=== PATIENT | female | born 1965 | race Caucasian/White ===

== ENCOUNTER → 2018-02-17 14:45 | Outpatient (CLI) | payer OTHER, SELFPAY ==
--- NOTE | 2018-02-17 14:50 | RAD_ITS ---
STUDY: X-RAY - LUMBAR SPINE REASON FOR EXAM: Female, 52 years old. Lumbago with left side sciatica. TECHNIQUE: 5 view(s) of the lumbar spine were obtained. COMPARISON: None FINDINGS: Normal lumbar lordosis. There is no substantial scoliosis. There is a normal alignment of the vertebrae. There is multilevel endplate spondylosis of the lumbar vertebrae. Normal disc space heights. There is no evidence of acute fracture or loss of vertebral axial height. There is no demonstrated spondylolysis of the pars interarticulares. The soft tissue structures are unremarkable. RAD/L/S Spine Min 4 Views IMPRESSION: Degenerative changes of the spine, as detailed above. Electronically Signed: Aba Padron DO at 11:59 EDT Tel [phone], Service support ,
== END ==
PROVIDERS: Family Provider Family Medicine; PCP Family Medicine; Visit Provider Family Medicine
DX: M54.42 Lumbago with sciatica, left side (principal)
CPT/HCPCS: 72110

== ENCOUNTER → 2018-03-16 16:07 | Outpatient (CLI) | payer OTHER, SELFPAY ==
[2018-03-22 12:53] LABS: HPV Reflexed? NOT INDICATED
== END ==
PROVIDERS: Visit Provider Obstetrics & Gynecology
DX: Z12.4 Encounter for screening for malignant neoplasm of cervix (principal)
CPT/HCPCS: 88175; G0145

== ENCOUNTER → 2018-04-18 08:30 | Outpatient (CLI) | payer OTHER, SELFPAY ==
--- NOTE | 2018-04-18 08:32 | BI_ITS ---
MAMMOGRAPHY - BILATERAL SCREENING REASON FOR EXAM: Female, 52 years old. Routine annual screening examination. PERTINENT HISTORY: Aunt with breast cancer. TECHNIQUE: Digital bilateral breast carole (3D mammographic acquisition) in the CC and MLO projections. 2-D mediolateral oblique (MLO) and craniocaudad (CC) views of both breasts were obtained. CAD: Full Field Digital Mammography with Computer Added Detection was performed. COMPARISON: Comparison is made with prior study dated February 25, 2017 and January 23, 2016. FINDINGS: Breast Composition: There are scattered areas of fibroglandular density. There are no dominant masses or suspicious calcifications. No other significant abnormalities are identified. There has been no significant change since the prior study. BI/SCREENING MAMM (CAD), BILAT IMPRESSION: Stable bilateral screening mammogram. Yearly follow-up mammogram recommended. (A) ASSESSMENT CATEGORY: BIRADS Category 1: Negative. A letter regarding these results will be sent to the patient by the facility within 30 days. Approximately 10% of breast cancers are not detected by mammography. A normal mammogram should not delay biopsy of a clinically suspicious abnormality. [id number] Electronically Signed: Rafat James MD at 11:14 EDT Tel [phone], Service support ,
== END ==
PROVIDERS: Family Provider Family Medicine; PCP Family Medicine; Visit Provider Obstetrics & Gynecology
DX: Z12.31 Encounter for screening mammogram for malignant neoplasm of breast (principal)
CPT/HCPCS: 77063; 77067

== ENCOUNTER 2018-04-28 16:00 | Outpatient (RCR) | payer OTHER, SELFPAY ==
--- NOTE | 2018-04-01 15:25 | HP.PTEVAL_ITS ---
Patient's Visit Information DOROTHY DIETRICH is a 52 year old F referred to Physical Therapy by Emanuel Gregory with a diagnosis of Lumbar DDD. Date of Evaluation: 04/01/18 Physical Therapist: CARMELO McginnisT, OC - Visit Plan Frequency: 2x /Week Duration: 4-6 Weeks Plan: 2x/week for 4-6 weeks for. Izaiah type progression of ext forces. ext mobs if needed. DLS and hip strength progress to I. ES and MH if needed. - Subjective Subjective: Back and hip pain. This is going on for a long while> one year. Pain is in LB and into both posterior hips. Sitting too long is worse and makes it hard to get up. Leg crossing sitting makes hips worse. Not sure why this started. Gets massages which feel good. Working at [employer] at one time and on feet alot was very hard. 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 One month ago she got worse for no apparent reason taking 2 ibuprofen every 4 hours. Lying down hurt and walking hurt. Still hurts but not to that extent. Sleep on side and wakes up early because of pain. Up in the morning adn sitting too long is worse. 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 Work is normal but has to muddle through it. Does basics at home but hurts. Enjoys reading in recliner. Walks 5-7 miles per day at work. - Pain LBP/post hips Pain Intensity (Out of 10): 5 Pain Intensity Range: 0, 7 - Objective Walks and transfers I, low tone trunk. Posture is forward head and flat lordosis. L/S AROM ext mod limited and painful central, SB hurts ipsilaterally , flexion is tight. Tenderness in low back paraspinals is minimal. reflexes 2/ 3 in patella and achilles. Sensation In LE WNL to gross light touch. Strength 3+ in hips and 4 in knees and 4+ in ankles, no myotomal abnormalities. Core is 3/5 and loses core postioning often with sidelying leg testing. Repeated PPU increases LB ext ROM. - Goals Goal 1:: Full L/S AROM without pain and out of chair easily without pain. Goal Time Frame: 4-6 Weeks Goal 2:: Pain down to 1/10 at worst in LB and 90% improved. Goal Time Frame: 4-6 Weeks Goal 3:: I approp HEP for DLS to minimize future problems. Goal Time Frame: 4-6 Weeks - Rehabilitation Potential Physical Therapy Diagnosis: Lumbar DDD likely discal derangement. Rehabilitation Potential: Fair - Anticipated Interventions Patient/Client Instruction: Educate patient on: Condition, Plan of Care For the Purpose of:: To decrease pain, To increase ROM, To improve performance and independence with ADL's Therapeutic Exercise to Include: Strength training, Active ROM, Dynamic Lumbar Stabilization, Izaiah Exercises For the Purpose of:: To decrease pain, To increase ROM, To improve ability of physical actions for home/community/work/leisure Manual Therapy Techniques to Include: Mobilization Comment: ext. For the Purpose of:: To improve ability of physical actions for home/community/ work/leisure TENS: Yes Thermo therapy (hot pack): Yes For the Purpose of:: To decrease pain Thank you for the opportunity to evaluate your patient. For Medicare and Medicare HMO plans, please review the plan of care and approve it. It will need to be FAXED BACK to us at [phone] for Medicare purposes. Please let me know if there are questions or concerns regarding this plan of care. Physician Signature: Date:
--- NOTE | 2018-04-28 16:46 | HP.PTDCSUM ---
HP - PT D/C Summary It has been my pleasure to treat DOROTHY DIETRICH under orders from Emanuel Gregory, for the diagnosis of Lumbar DDD for a total of 7 visit(s). Discharge Date: 04/28/18 Please see the following information for a summary of their discharge status. - Subjective Subjective: Was doing great until fell off ladder 10 days ago. 2/10 pain now intermittently. Some days no pain. Doing HEP and thinks they will help. Wants to continue with HEP at home. NO f/u scheduled with doctor. - Pain LBP/post hips Pain Intensity (Out of 10): 2 - Overall Improvement % Improvement: 85 - Objective Objective/Function: Good L/S AROM with just some central pressure. Steps reciprocal without rail. OVERALL DOING VERY WELL AND READY TO BE ON HER OWN. - Goals Goal 1:: Full L/S AROM without pain and out of chair easily without pain. Goal Progress: Progressing Goal 2:: Pain down to 1/10 at worst in LB and 90% improved. Goal Progress: Progressing Goal 3:: I approp HEP for DLS to minimize future problems. Goal Progress: Goal Met - Plan Plan: D/C to HEP - D/C Information Discharge Comments: Doing well and ready to be on own. Will continue via HEP adn contact doctor if pain returns. If there are questions or concerns regarding this patient's physical therapy, please feel free to call me at [phone]. Thank you for the referral of this patient. Sincerely, Jose Krishnamurthy, DPT, OC
== END 2018-04-28 19:00 | disposition home or self-care (01) ==
LOC: PT 16:00
PROVIDERS: Family Provider Family Medicine; PCP Family Medicine; Visit Provider Family Medicine
DX: M51.36 Other intervertebral disc degeneration, lumbar region (principal)
CPT/HCPCS: 97014; 97110; 97162; 97530; G0283

== ENCOUNTER 2019-04-27 04:33 | Emergency (ER) | payer OTHER, SELFPAY ==
[2019-04-27 04:33] VITALS: BP 180/121; PULSE 84; TEMP 36.7; O2SAT 99; BMI 25.3
--- NOTE | 2019-04-27 04:54 | US_ITS ---
STUDY: ULTRASOUND GALLBLADDER REASON FOR VISIT: Female, 53 years old. . Airspace pneumonia right congestion follow-upas(0). (The TECHNIQUE: Ultrasound evaluation of the gallbladder was performed with real-time and static maynard-scale imaging. TECHNICAL QUALITY: Adequate. COMPARISON: None. FINDINGS: Gallbladder: Normal distended gallbladder. The gallbladder wall measures 1.9 mm. There is a negative sonographic Chopra's sign. There is no pericholecystic fluid. There are multiple filling defects attached to the l wall of the gallbladder wall consistent with polyps one of them could represent stone without acoustic shadowing. All of them are less than half centimeters in diameter. . The liver is normal in size, shape and echogenicity it measures 15.4 cm. The CBD measures 2.7 mm. The portal vein is unremarkable. No dilatation of the intrahepatic biliary system The right kidney measures 11.2 x 3.1 x 4.2 cm old. The renal cortex measures 0.9 cm. No hydronephrosis or stone. US/Gallbladder IMPRESSION: Small multiple filling defects attached to the wall of the gallbladder consistent with polyps one of them could represent a stone without acoustic shadowing. Electronically Signed: Shayy White, at 9:26 EDT Tel , Service support ,
[2019-04-27] MEDS: Ondansetron 4 MG/2 ML Vial IV (05:13)
[2019-04-27] MEDS: Ketorolac 30 MG/ML Syringe IV (05:13)
[2019-04-27] MEDS: 0.9% Normal Saline 1,000 ML 1000 ML IV (05:13)
[2019-04-27 05:19] LABS: ALB/GLOB Ratio 1.2 RATIO (0.9-2.4); AST(SGOT) 22 U/L (15-37); Alanine Aminotransfer ALT/SGPT 37 U/L (13-56); Albumin, Serum 4.2 g/dL (3.2-5.0); Alkaline Phosphatase 68 U/L (45-117); Anion Gap 9 (5-15); BUN 17 mg/dL (7-18); BUN/Creat Ratio 16.8 RATIO (10-20); Chloride 107 mmol/L (98-107); Creatinine, Serum 1.01 mg/dL (0.55-1.02); EST Glomerular Filtration Rate 61 mL/min (>60); Est Glom Filt Rate - Afr Amer 73 mL/min (>60); Estimated Creatinine Clearance 50.36 ml/min; Globulin 3.5 g/dL (2.2-4.2); Glucose 105 mg/dL (74-106); Lipase 287 U/L (73-393); Potassium 3.7 mmol/L (3.5-5.1); Protein, Total 7.7 g/dL (6.4-8.2); Sodium Level 144 mmol/L (136-145)
[2019-04-27 05:27] LABS: Absolute Lymphocyte Count 2.88 X10^3/ul (0.83-4.51); Absolute Neutrophil Count 4.2 X10^3/uL (2.0-7.7); Basophil# 0.05 X10^3/uL; Basophil% 0.6 % (0-1); Eosinophil# 0.32 X10^3/uL; Lymphocyte # 2.88 X10^3/ul (4.0); Lymphocyte % 36.1 % (19-41); Mean Corpuscular Volume 84.2 fL (81-99); Mean Platelet Vol. 9.9 fl (6.2-12.0); Monocyte# 0.56 X10^3/uL; Neutrophil # 4.15 X10^3/uL (2.7-7.7); Platelet Count 344 K/mm3 (150-450); RBC Distribution Width CV 11.8 % (11.6-14.6); RBC Distribution Width SD 35.4 fl (35.1-43.9); Red Blood Count 4.75 M/mm3 (4.2-5.4)
[2019-04-27 05:28] LABS: Mean Corpuscular Hgb 29.5 pg (27.0-32.0); POSITIVE COUNT NO; POSITIVE DIFFERENTIAL NO; POSITIVE MORPHOLOGY NO
--- NOTE | 2019-04-27 05:41 | ED.DCSUM_ITS ---
- ER Visit Summary Date of Service: 04/27/19 Chief Complaint: Abdominal pain History of Present Illness: The patient is a 53 F who presents with abdominal pain. This been going on for about 24 hours. It waxes and wanes. It stabbing at times with a constant background dull aching pain. It is in the upper abdomen and right upper abdomen radiates through to the back. She currently rates it as 3 out of 10 however it was 10 out of 10 at home. She also reports mild nausea without vomiting. No fevers. No chest pain shortness of breath diarrhea. No history of prior similar symptoms. No history of abdominal surgeries. Physical Examination: Afebrile hypertensive with a blood pressure of 180/121 vitals otherwise normal Moist mucous membranes Heart regular rate and rhythm Lungs clear Abdomen soft nondistended she does have epigastric and right upper quadrant tenderness without guarding without rebound no Chopra sign Alert Test Results: CBC CMP and lipase normal. Right upper quadrant ultrasound pending at the time of this dictation. Emergency Department Course and Treatment: Patient was treated with IV fluids, Toradol, Zofran. She is still complains of mild discomfort on reevaluation. Repeat abdominal exam remains soft. Ultrasound pending and will not be obtained until after signout this morning. Plan at the time of this dictation is for the morning physician to follow-up on ultrasound however given normal laboratory studies and lack of peritoneal signs on exam I anticipate discharge with outpatient follow-up. Treatment Plan: [] Disposition: Pending right upper quadrant ultrasound Impression: Epigastric and right upper quadrant abdominal pain This note was generated with [employer] dictation software. It may contain incorrect words, spelling, and punctuation that were not noted in review of the chart prior to signing ED Disposition - Plan for ED Patient: Referrals: Maurisio Gregory MD [Primary Care Provider] -
[2019-04-27 06:30] VITALS: BP 162/89; PULSE 71; RESP 17; O2SAT 96
--- NOTE | 2019-04-27 08:15 | ED.VISSUMM ---
- ER Visit Summary Date of Service: 04/27/19 Chief Complaint: Right upper quadrant abdominal pain History of Present Illness: The patient is a 53 F who was seen by Dr. Huston initially today with right upper quadrant and epigastric abdominal pain. He ordered a ultrasound of the right upper quadrant and this is pending. Patient is feeling better on reevaluation. Physical Examination: Patient is resting comfortably on reevaluation. Test Results: Right upper quadrant ultrasound was obtained. There is no gallbladder wall thickening. There is no ductal dilatation. There are multiple small polyps versus gallstones noted. This was interpreted by the radiologist and reviewed by myself. Emergency Department Course and Treatment: Patient is feeling better and resting comfortably on reevaluation. Patient was advised of her ultrasound results. Patient was given a prescription for a short course of [place]. Patient was instructed to eat a bland diet. Patient was instructed to avoid fried foods, fatty foods, and greasy foods. Patient was instructed to follow-up with her primary care physician in 5 to 7 days. Patient understood and was agreeable with the plan. All questions were answered. Disposition: Discharge home Impression: Right upper quadrant abdominal pain This note was generated with [employer] dictation software. It may contain incorrect words, spelling, and punctuation that were not noted in review of the chart prior to signing ED Disposition - Plan for ED Patient: Disposition: Home or Assisted Living Diagnosis: Right upper quadrant abdominal pain Instructions: ABDOMINAL PAIN, Unknown Cause, (Female) Prescriptions: Hydrocodone Bitart/Apap 5-325 [[place] 5MG-325MG] 1 tab PO Q6H PRN PRN 3 Days #10 tab PRN Reason: Pain Prescription Printed Referrals: Maurisio Gregory MD [Primary Care Provider] - 5-7 Days
[2019-04-27] MEDS: Morphine 4 MG/ML Syringe IV (10:32)
[2019-04-27 10:39] VITALS: BP 153/92; PULSE 86; RESP 18; O2SAT 98
[2019-04-27 11:46] VITALS: BP 167/87; PULSE 71; RESP 18; O2SAT 98
== END 2019-04-27 11:48 | disposition home or self-care (01) ==
PROVIDERS: Emergency Provider Emergency Medicine; Family Provider Family Medicine; PCP Family Medicine
DX: R10.13 Epigastric pain (principal); R10.11 Right upper quadrant pain; J45.909 Unspecified asthma, uncomplicated
CPT/HCPCS: 76705; 80053; 83690; 85025; 96361; 96374; 96375; 99284; J7030; A4216; J2405

== ENCOUNTER 2019-05-26 11:03 | Day surgery (SDC) | payer OTHER, SELFPAY ==
[2019-05-03 08:56] VITALS: BMI 25.3
--- NOTE | 2019-05-03 09:25 | HP_ITS ---
Intake Vital Signs 05/03/19 Body Mass Index (BMI) 25.3 05/03/19 Height 5 ft 2 in 05/03/19 Weight: 129 lb 05/03/19 Body Mass Index (BMI) 23.6 05/03/19 Blood Pressure 171/93 H 05/03/19 Blood Pressure Location Rt brachial 05/03/19 Respiratory Rate 18 05/03/19 Pulse Rate 93 05/03/19 Pulse Source Monitor 05/03/19 Temperature 98.2 F 05/03/19 Temperature Source Oral 05/03/19 Pulse Ox 98 05/03/19 Oxygen Delivery Method room air Intake Visit Reasons: Gall Stones [facility] 04/27 Mechanic Recovery Required: No Is patient in pain?: No Allergies dog dander Allergy (Verified 05/03/19 08:55) Other minerals [From Enviro Stress] Allergy (Verified 05/03/19 08:55) Other perfume Allergy (Verified 05/03/19 08:55) Angioedema envirvoment Allergy (Uncoded 04/27/19 05:19) Other SMOKE Allergy (Uncoded 04/27/19 04:48) Angioedema Medications Cetirizine HCl [Zyrtec] 10 mg PO DAILY 04/27/19 [History Confirmed 05/03/19] Fluticasone 0.05% [Flonase Nasal [place]] 1 spray NASAL DAILY 04/27/19 [History Confirmed 05/03/19] Mometasone Furoate [Asmanex 220 mcg Twisthaler] 1 puff INHALATION DAILY 04/27/19 [History Confirmed 05/03/19] Multivit-Min/Folic Acid/Vit K1 [Multi For Her 50 Plus Softgel] 1 ea PO DAILY 04/27/19 [History Confirmed 05/03/19] [place]-3 Fatty Acids [Fish Oil] 1,200 mg PO BID 04/27/19 [History Confirmed 05/03/19] B-complex with vitamin C capsule 1 cap PO DAILY 05/03/19 [History Confirmed 05/03/19] vitamin E (dl, acetate) 400 unit capsule 400 unit PO DAILY 05/03/19 [History Confirmed 05/03/19] [facility] Medical History Abdominal pain (Acute) Asthma (Acute) GERD (gastroesophageal reflux disease) (Acute) Nausea (Acute) Hypertension (Chronic) Surgical History (Updated 05/03/19 @ 08:52 by Emily Isabel) History of dilation and curettage (Acute) History removal of wisdom teeth (Acute) Family History (Updated 05/03/19 @ 08:53 by Emily Isabel) Mother Thyroid disorder Hypertension Father Cancer Lung cancer CVA (cerebral vascular accident) Sister Diabetes Social History (Updated 05/03/19 @ 09:25 by Miguel A Bradshaw MD) Smoking Status: Never smoker substance use type: does not use HPI HPI HPI: DOROTHY DIETRICH, is a 53 F who presents to the office today for HPI HPI Surgical H&P: Yes HPI: DOROTHY DIETRICH, is a 53 F who presents to the office today for right upper quadrant pain. Patient was recently in the emergency room after an episode of right upper quadrant pain. She described this is 24 hours of waxing and waning pain which was sharp and radiating to the back. There is no nausea or vomiting associated. She has never had attacks like this in the past and has not had any since last week. ROS General General: No weight change, appetite, fatigue, colon cancer, breast cancer or weakness HEENT HEENT: No difficulty swallowing, eye injury, eye surgery, swollen glands or hoarseness Endo Endocrine: No thyroid disease, diabetes mellitus, thyroid cancer, Hair loss, heat intolerance or cold intolerance Skin Skin: No rash or changing moles Breast Breast: No left breast lump, right breast lump, nipple discharge, breast pain, abnormal mammogram, abnormal US or breast enlargement Musc Musculoskeletal: No back problems, arthritis, rheumatoid arthritis, gout or joint pain Cardio Cardiovascular: Yes high blood pressure; no murmur, pacemaker, heart disease, atrial fibrillation, heart attack, heart stent, palpitations, shortness of breat with exertion or chest pain Psych Psychiatric: No depression, anxiety or hearing voices Resp Respiratory: No shortness of breath, No sleep apnea, No cough, No COPD, Yes asthma, No emphysema, No wheezing Gastro Gastrointestinal: Yes abdominal pain, Yes nausea or vomiting, No diarrhea, No constipation, No blood in stool, Yes acid reflux, No hemorrhoids, No ulcers, Yes gallbladder problem, No black,tarry stools Monty Hematologic: No blood thinners, No blood disorders, No bleeding, No anemia, No blood clots Neuro Neurologic: No system reviewed and no additional complaints, except as docu, No as per HPI, No abnormal walking, No abnormal hearing, No abnormal movements, No abnormal speech, No behavioral changes, No burning sensations, No confusion, No seizure-like activity, No unsteadiness, No dizziness, No localized weakness, No frequent falls, No headache(s), No lack of coordination, No loss of vision, No memory loss, No numbness, No other visual disturbances, No radiating pain, No restless legs, No sensory deficit, No fainting, No tingling, No tremor(s), No weakness, No other Exam Const General: cooperative Orientation: alert, oriented x3 HENMT Head: normal to inspection Ears: hearing grossly normal bilaterally Eyes General: appearance normal, both eyes and all related structures Visual Wooten: normal visual wooten by confrontation Neck Neck: normal visual inspection Chest Chest palpation & inspection: normal inspection of the chest Breast Palpation: No nipple discharge Resp Effort & Inspection: normal respiratory effort Auscultation: clear to auscultation bilaterally Cardio Rate: regular rate Rhythm: regular rhythm Heart Sounds: no murmurs GI Inspection: non-distended Palpation: soft, nontender Musc Cervical Spine: normal cervical lordosis, cervical ROM normal Skin General: no rashes or lesions noted Neuro General: alert, oriented x3 Cranial Nerves: CN's II-XI intact bilaterally Cognition: normal cognition Extrem General: normal to inspection, full ROM Psych Appearance: grossly normal Affect: normal affect Assessment & Plan Problems 1. Calculus of gallbladder without cholecystitis without obstruction K80.20 Plan Patient had an episode of right upper quadrant pain which is very suggestive of biliary colic. She had an ultrasound which showed no signs of acute cholecystitis but she did have several small polyps as well as a possible gallstone. I did recommend laparoscopic cholecystectomy to the patient. I discussed the procedure in detail with the patient. I discussed the risks, benefits, and alternatives of the procedure. I discussed the risks including but not limited to bleeding, infection, injury to surrounding organs such as the liver, bile duct, bowels. I did discuss the possibility of having to convert to an open procedure as well as the possibility that if any injuries occurred this may necessitate further surgery at a tertiary care center. Miguel A Bradshaw MD Pager: [facility] [address] [place] [address], [address] [place] [id number] Office: Coding Level of Care Code Off vis,new,level 4 Diagnoses Calculus of gallbladder without cholecystitis without obstruction K80.20 ??Cholelithiasis location: gallbladder ??Cholecystitis presence: without cholecystitis ??Biliary obstruction: without biliary obstruction 05/03/19 0926 <Electronically signed by Miguel A garsia MD> Date _ Miguel A Bradshaw MD I have re-examined the patient. There are no clinical changes since date of exam.
--- NOTE | 2019-05-19 15:09 | EKG12_ITS ---
Test Reason : PRE OP Blood Pressure : / mmHG Vent. Rate : 076 BPM Atrial Rate : 076 BPM P-R Int : 146 ms QRS Dur : 076 ms QT Int : 404 ms P-R-T Axes : 048 006 040 degrees QTc Int : 454 ms Normal sinus rhythm with sinus arrhythmia Normal ECG Confirmed by ALDAIR SANTOS, MEGHA ([id number]), video news editor EDMUND PABLO ([id number]) on 05/22/2019 1:20:58 PM Referred By: Miguel A Bradshaw Confirmed By:CARLEE QUINTEROS MD
[2019-05-26] VITALS (8 sets, daily range): BP systolic 151–177; BP diastolic 82–92; PULSE 51–87; RESP 16–18; TEMP 36.6–37.3; O2SAT 99–100; BMI 22.8
--- NOTE | 2019-05-26 13:20 | GALL_PTH ---
PATIENT: DOROTHY DIETRICH LOC: [facility] U#:[id number] AGE/SX: 53/F ROOM: RE05/26/[address]: Dr. Miguel A Bradshaw MD : 1965 BED: DIS: 05/26/2019 SPEC #: [id number] RECD: 05/26/19 16:49 STATUS: [place] #: [id number] CHRISTINA: 05/26/19 13:[address]: Miguel A Bradshaw DEPT: SURGICAL PATHOLOGY RECD BY: Jono Rogers ENTERED: 05/29/19 09:41 SP TYPE: MYESHA CARMICHAEL DR: Dr. Emanuel Gregory MD Tissues: Gallbladder, NOS Procedures: Surgery Specimen Level III HEADER OPERATION: Laparoscopic cholecystectomy with IOC PRE-OP DIAGNOSIS: Calculus of gallbladder without cholecystitis or obstruction K80.20 TISSUE SUBMITTED: Gallbladder MICROSCOPIC DIAGNOSIS Gallbladder, cholecystectomy: Cholesterolosis and chronic cholecystitis AM:dinesh 05/30/19 MICROSCOPIC DESCRIPTION Slides are reviewed. GROSS DESCRIPTION Received is one container labeled with the patient's name and designated gallbladder. The specimen consists of a gallbladder measuring 6.5 cm in length and up to 3 cm in diameter. The external surface is pink-guaman, smooth and glistening for the most part. Focally it is granular, hemorrhagic and contains cautery artifact. The gallbladder contains green-yellow mucoid bile. No stones are identified in the container or in the gallbladder. The mucosa shows small polypoid lesions measuring 0.1 to 0.3 cm in greatest dimension. The gallbladder wall measures up to 0.1 cm in thickness. Apparatus Engineering Technologist sections from the gallbladder and the cystic duct are submitted in one cassette. The polypoid lesions are submitted in entirety. / SJ:sarah 05/29/19 TC: 3 [facility]: [id number]
[2019-05-26] MEDS: Bupiv/Epi 0.25% 30 ML Vial (13:55)
--- NOTE | 2019-05-26 14:08 | PCM.OPRPT ---
Problem List (1) Cholelithiasis Status: Acute Qualifiers: Cholelithiasis location: gallbladder Cholecystitis presence: without cholecystitis Biliary obstruction: without biliary obstruction Qualified Code(s): K80.20 - Calculus of gallbladder without cholecystitis without obstruction Report of Operation Date of Procedure: 05/26/19 Pre-Operative Diagnosis: Cholelithiasis and biliary colic Post-Operative Diagnosis: Same Surgery/Procedure Performed:: Laparoscopic cholecystectomy with cholangiogram Specimen's removed: Gallbladder and contents Description of Procedure: After obtaining informed consent patient was brought back to the operating room. General anesthesia was induced. The abdomen was prepped and draped in usual sterile fashion. A small midline incision was made superior to the umbilicus and deepened to the level of fascia. The fascia was elevated and incised. Next the peritoneum was elevated and incised in the same fashion. Finger sweep was performed and the Quiñonez trocar was placed into the abdomen. The balloon was inflated. The abdomen was inflated to 15 mmHg. Next a camera was introduced into the abdomen and the abdomen was inspected. Next under direct visualization three 5-mm ports were placed one subxiphoid and 2 subcostal. Next the gallbladder was elevated and retracted toward the right shoulder. The peritoneum was stripped from the gallbladder. The infundibulum was located and retracted laterally. Next the triangle of Calot was dissected and the cystic duct and cystic artery were identified. Cholangiograms were performed. The Caro clamp was used to clamp across the infundibulum and the catheter needle was inserted into the gallbladder. Under fluoroscopy contrast was instilled into the gallbladder and the common duct, cystic duct as well as proximal hepatic ducts were identified. There was good filling of the duodenum. There were no filling defects noted in the common bile duct. The clamp was removed as well as the needle and the infundibulum was grasped once more. Three hemolock clips were placed across the cystic duct. The cystic duct was then divided leaving 2 clips on the stump. The cystic artery was clipped and divided in the same fashion. The hook cautery was then used to take the gallbladder off of the gallbladder bed. Hemostasis was obtained. Gallbladder fossa was irrigated and no active bleeding or bile leakage was noted. Next the camera switched to a 5 mm camera and introduced in the subxiphoid port. An Endopouch bag was placed through the umbilical port and the gallbladder was placed into it. The gallbladder was then removed through the umbilical incision. The camera was then reinserted through the umbilical port. The gallbladder fossa was inspected once more and noted to be hemostatic with no leaking bile. The abdomen was suctioned dry. The 5 mm ports were removed under direct visualization. The umbilical port was then removed and the air was removed from the abdomen. Next using an 0 Vicryl suture the umbilical fascia was closed in a [id number]-el-bgeih fashion. The umbilical port site was irrigated local anesthetic was administered to all the incisions. All the incisions were closed with interrupted subcuticular 4-0 Monocryl sutures followed by Steri-Strips and dressings. The patient was awoken and taken to PACU in stable condition. - Admit VTE Documentation VTE Mechan Device Prophylaxis: SCD's
--- NOTE | 2019-05-26 14:10 | PCM.DC.GB ---
Discharge Diet: Light diet - advance as tolerated Discharge Activity: Return to Normal Activity, May Not Drive - for 2-3 days or while taking narcotic pain medicataions., - - Do not drive, work heavy equipment or sign legal documents for 24 hours. May shower in (days): 1 - with the bandage in place. Lifting Restrictions: 20 lbs for 2 weeks Additional Activity Instructions:: Pain medication may cause nausea. You should typically eat light foods as you take your pain medications. Pain medication may also cause constipation. If this is a problem for you, please discuss with your doctor. Call your doctor if your incision/area has: Continuous Slow Oozing, Sudden Increased Bleeding, Increased Pain/ Swelling, Increased Redness, Foul Smelling Discharge, Fever of 101 or Higher Call your doctor if you observe: Fever of 101 or Higher Suture Line Care: Avoid Pulling/Pushing, Avoid Pinching/Bending Additional Dressing/Incision Instructions:: Leave operative bandaids on for 2 days. When you remove dressing, leave Steri-Strips on until your follow-up appointment, or until the Steri-Strips fall off on their own. Allergies/Adverse Reactions: Allergies dog dander Allergy (Verified 05/03/19 08:55) Other SINUS DRAINAGE minerals [From Enviro Stress] Allergy (Verified 05/03/19 08:55) Other SINUS DRAINAGE mold Allergy (Verified 05/26/19 12:12) Swelling perfume Allergy (Verified 05/03/19 08:55) Angioedema envirvoment Allergy (Uncoded 04/27/19 05:19) Other sinus drainage SMOKE Allergy (Uncoded 04/27/19 04:48) Angioedema sulfites Allergy (Uncoded 05/19/19 14:12) Swelling Medications to take at Discharge Cetirizine HCl [Zyrtec] 10 mg PO DAILY 04/27/19 Fluticasone 0.05% [Flonase Nasal [place]] 1 spray NASAL DAILY 04/27/19 Mometasone Furoate [Asmanex 220 mcg [place]] 1 puff INHALATION DAILY 04/27/19 Multivit-Min/Folic Acid/Vit K1 [Multi For Her 50 Plus Softgel] 1 ea PO DAILY 04/27/19 [place]-3 Fatty Acids [Fish Oil] 1,200 mg PO BID 04/27/19 B-complex with vitamin C capsule 1 cap PO DAILY 05/03/19 vitamin E (dl, acetate) 400 unit capsule 400 unit PO DAILY 05/03/19 Albuterol IH (ProAir) [Proair Hfa (SP)Vent Pts] 1 - 2 puff INHALATION Q6H PRN PRN 05/19/19 Oxycodone HCl/Acetaminophen [Percocet 5/325] 1 - 2 tablet PO Q4H PRN PRN 7 Days #20 tablet 05/26/19 The following prescriptions were given: Oxycodone HCl/Acetaminophen [Percocet 5/325] 1 - 2 tablet PO Q4H PRN PRN 7 Days #20 tablet PRN Reason: Pain Transmission Status: Sent to [facility] Orders to be completed after discharge: 12 Lead EKG [[facility]] Time Frame: 05/19/19, Facility: [facility], Location: Cardiovascular Services Primary Care Physician: Maurisio Gregory MD [Primary Care Provider] - Test Results: Test results from this visit will be discussed in further detail at your follow-up appointment, if applicable. Please Follow Up With: Miguel A Bradshaw MD When: Please call to schedule 2 week follow up appointment. [phone]
--- NOTE | 2019-05-26 14:35 | RAD_ITS ---
CLINICAL HISTORY: Female, 53 years old. Cholecystectomy PROCEDURE: CHOLANGIOGRAM - intraoperative CONSENT: Informed consent obtained SEDATION: General anesthesia FLUOROSCOPY TIME (if supplied): (0:08) minutes/seconds Placement of the catheter and the procedure were performed by: Dr. Bradshaw Fluoroscopy was provided by [place] Ralph, , who was present in the room time of the procedure. TECHNIQUE: (All elements of maximal sterile barrier technique followed, including US elements as applicable) After cholecystectomy, the cystic duct was cannulized and contrast injected into the biliary tree in a retrograde manner. There is normal filling of the biliary tree. No retained stone noted. There is free flow of contrast into the duodenum and no extravasation of contrast outside the lumen of the biliary tree noted. RAD/Cholangiogram/ O R,Initial IMPRESSION: Normal intraoperative cholangiogram Electronically Signed: Anand Paulino MD at 14:01 EDT , Service support ,
== END 2019-05-26 17:07 | disposition home or self-care (01) ==
LOC: SDC 11:03 → AC 11:09
PROVIDERS: Family Provider Family Medicine; PCP Family Medicine; Referring Provider Surgery; Visit Provider Surgery
PROC: (CPT 47610; principal; 2019-05-26 13:00)
DX: K81.1 Chronic cholecystitis (principal); J45.909 Unspecified asthma, uncomplicated; K21.9 Gastro-esophageal reflux disease without esophagitis; I10 Essential (primary) hypertension; Z79.51 Long term (current) use of inhaled steroids; Z79.899 Other long term (current) drug therapy
CPT/HCPCS: 47563; 74300; 76000; 88304; 93005; J7120; J2405

== ENCOUNTER → 2019-07-08 | Outpatient (CLI) | payer OTHER, SELFPAY ==
[2019-05-26 12:15] VITALS: BMI 22.8
[2019-07-08 08:22] LABS: AST(SGOT) 24 U/L (15-37); Alanine Aminotransfer ALT/SGPT 48 U/L (13-56); Albumin, Serum 3.8 g/dL (3.2-5.0); Alkaline Phosphatase 94 U/L (45-117); Anion Gap 8 (5-15); BUN 15 mg/dL (7-18); BUN/Creat Ratio 18.2 RATIO (10-20); Calcium,Total 8.8 mg/dL (8.5-10.1); Chloride 112 mmol/L (98-107); Cholesterol 255 mg/dL (200); Creatinine, Serum 0.82 mg/dL (0.55-1.02); EST Glomerular Filtration Rate 77 mL/min (>60); Est Glom Filt Rate - Afr Amer 93 mL/min (>60); Globulin 3.8 g/dL (2.2-4.2); Glucose 88 mg/dL (74-106); High Density Lipoprotein 57 mg/dL; Potassium 3.9 mmol/L (3.5-5.1); Protein, Total 7.6 g/dL (6.4-8.2); Sodium Level 143 mmol/L (136-145); Thyroid Stim Hormone (TSH) 1.05 uIU/mL (0.358-3.74); Triglycerides 213 mg/dL; Very Low Density Lipoprotein 43 mg/dL (5-40)
== END | disposition home or self-care (01) ==
LOC: LAB 07:04
PROVIDERS: Family Provider Family Medicine; PCP Family Medicine; Referring Provider Family Medicine; Visit Provider Family Medicine
DX: E78.5 Hyperlipidemia, unspecified (principal); Z13.29 Encounter for screening for other suspected endocrine disorder
CPT/HCPCS: 36415; 80053; 80061; 84443

== ENCOUNTER → 2019-07-17 | Outpatient (CLI) | payer OTHER, SELFPAY ==
[2019-05-26 12:15] VITALS: BMI 22.8
--- NOTE | 2019-07-17 15:51 | BI_ITS ---
MAMMOGRAPHY - BILATERAL SCREENING REASON FOR EXAM: Female, 54 years old. Routine annual screening examination. PERTINENT HISTORY: Aunt with breast cancer. TECHNIQUE: Digital bilateral breast paz (3D mammographic acquisition) in the CC and MLO projections. 2-D mediolateral oblique (MLO) and craniocaudad (CC) views of both breasts were obtained. CAD: Full Field Digital Mammography with Computer Added Detection was performed. COMPARISON: Comparison is made with prior study dated April 18, 2018 and February 25, 2017. FINDINGS: Breast Composition: There are scattered areas of fibroglandular density. There are no dominant masses or suspicious calcifications. No other significant abnormalities are identified. There has been no significant change since the prior study. BI/SCREEN MAMM (CAD) W/PAZ BILAT IMPRESSION: Stable bilateral screening mammogram. Yearly follow-up mammogram recommended. (A) ASSESSMENT CATEGORY: BIRADS Category 1: Negative. A letter regarding these results will be sent to the patient by the facility within 30 days. Approximately 10% of breast cancers are not detected by mammography. A normal mammogram should not delay biopsy of a clinically suspicious abnormality. [id number] Electronically Signed: Rafat James, at 8:35 EDT , Service support ,
== END | disposition home or self-care (01) ==
LOC: OPBI 15:49
PROVIDERS: Family Provider Family Medicine; PCP Family Medicine; Referring Provider Obstetrics & Gynecology; Visit Provider Obstetrics & Gynecology
DX: Z12.31 Encounter for screening mammogram for malignant neoplasm of breast (principal)
CPT/HCPCS: 77063; 77067

== ENCOUNTER → 2019-09-16 | Outpatient (CLI) | payer OTHER, SELFPAY ==
[2019-05-26 12:15] VITALS: BMI 22.8
[2019-09-16 09:26] LABS: Cholesterol 250 mg/dL (200); High Density Lipoprotein 73 mg/dL; Triglycerides 140 mg/dL; Very Low Density Lipoprotein 28 mg/dL (5-40)
== END | disposition home or self-care (01) ==
LOC: LAB 07:03
PROVIDERS: Family Provider Family Medicine; PCP Family Medicine; Referring Provider Family Medicine; Visit Provider Family Medicine
DX: E78.5 Hyperlipidemia, unspecified (principal)
CPT/HCPCS: 36415; 80061

== ENCOUNTER 2020-06-27 10:00 | Emergency (ER) | payer OTHER, SELFPAY ==
[2019-05-26 12:15] VITALS: BMI 22.8
[2020-06-27 10:01] VITALS: BP 180/98; PULSE 79; RESP 17; TEMP 36.7; O2SAT 100; BMI 24.9
[2020-06-27 10:08] VITALS: BP 200/95; PULSE 67; RESP 20; O2SAT 97
[2020-06-27 10:21] VITALS: BP 174/98
--- NOTE | 2020-06-27 10:30 | ED.DCSUM_ITS ---
- ER Visit Summary Date of Service: 06/27/20 Chief Complaint: Shortness of breath and lightheadedness History of Present Illness: The patient is a 54 F who presents with shortness of breath and lightheadedness that began today. Patient states she was working with vital oxide and started to feel lightheaded. Patient states she sat down and moved away from the chemical. Patient states she feels like her breathing is better. Patient states the lightheadedness has improved. Patient does admit to some sore throat. Patient also states she was having some palpitations with the lightheadedness. Patient brought in the label for vital oxide and the active ingredients include chlorine dioxide, alkyl dimethyl benzyl ammonium chloride, and alkyl dimethyl ethylbenzyl ammonium chloride. Physical Examination: Vital signs are stable. Patient is afebrile. Patient is in no acute distress. Oral mucosa is pink and moist. Neck is supple. Trachea is midline. There is no JVD noted. Heart was regular rate and rhythm. Lungs are clear and equal bilaterally. Abdomen is soft. Bowel sounds are normal. There is no tenderness. There is no rebound or guarding noted. Skin is warm dry. Cranial nerves II through XII are intact. There are no focal motor or sensory deficits noted. Extremities are intact. There is no calf tenderness or edema. Test Results: CBC and basic metabolic profile were obtained and were within normal limits. Chest x-ray does not show any acute cardiopulmonary process. This was interpreted by the radiologist and myself. Emergency Department Course and Treatment: Patient was observed in the emergency department. Patient is feeling much better on reevaluation. Patient was instructed to avoid exposure to the vital oxide chemical. Patient was instructed to follow-up with her primary care physician or [facility] in 5 to 7 days. Patient understood and was agreeable with the plan. All questions were answered. Disposition: Discharge home Impression: Chemical exposure This note was generated with [employer] dictation software. It may contain incorrect words, spelling, and punctuation that were not noted in review of the chart prior to signing ED Disposition - Plan for ED Patient: Disposition: Home or Assisted Living Diagnosis: Chemical exposure Instructions: ED Inhalation Chemical Referrals: Maurisio Gregory MD [Primary Care Provider] - 5-7 Days [facility] [GROUP OF PHYSICIANS] - 5-7 Days
--- NOTE | 2020-06-27 10:36 | RAD_ITS ---
STUDY: X-RAY CHEST REASON FOR EXAM: Female, 54 years old. WORKING WITH VITAL OXIDE. ACCIDENTALLY INHALED FUMES. STARTED and quot;NOT FEELING WELL and quot; BECAME PALE, DIZZY, AND SOB TECHNIQUE: Single AP portable view of the chest. COMPARISON: None. FINDINGS: EKG electrodes are seen. The lungs are clear and expanded. There is no demonstrated pleural abnormality. Normal size heart. Normal mediastinum and prasanna. Normal visualized pulmonary arteries. Normal visualized aortic arch and descending thoracic aorta. Normal visualized thoracic spine. Normal visualized ribs, clavicles, and shoulders. There is no demonstrated abnormality of the visualized soft tissue structures of the upper abdomen. RAD/Chest 1 View (Portable) IMPRESSION: Normal x-ray examination of the chest. Electronically Signed: Rafat James, at 11:16 EDT , Service support ,
[2020-06-27 10:59] LABS: Absolute Neutrophil Count 3.3 X10^3/uL (2.0-7.7); Basophil# 0.06 X10^3/uL; Basophil% 1.1 % (0-1); Eosinophil# 0.14 X10^3/uL; Eosinophils% 2.5 % (0-5); Hematocrit 39.8 % (37-47); Hemoglobin 13.7 g/dL (12.0-15.0); Lymphocyte % 31.8 % (19-41); Mean Corp Hgb Conc 34.4 g/dL (32-36); Mean Corpuscular Hgb 30.8 pg (27.0-32.0); Mean Corpuscular Volume 89.4 fL (81-99); Mean Platelet Vol. 9.6 fl (6.2-12.0); Monocyte# 0.33 X10^3/uL; Monocyte% 5.8 % (0-10); NRBC Flagged by Analyzer 0 % (0-5); Neutrophil # 3.31 X10^3/uL (2.7-7.7); Neutrophil % 58.4 % (47-70); Platelet Count 352 K/mm3 (150-450); RBC Distribution Width CV 11.6 % (11.6-14.6); RBC Distribution Width SD 38.3 fl (35.1-43.9); Red Blood Count 4.45 M/mm3 (4.2-5.4); White Blood Count 5.7 K/mm3 (4.4-11.0)
[2020-06-27 11:07] LABS: Anion Gap 5 (5-15); BUN 18 mg/dL (7-18); BUN/Creat Ratio 20.5 RATIO (10-20); Calcium,Total 9.3 mg/dL (8.5-10.1); Chloride 110 mmol/L (98-107); Creatinine, Serum 0.88 mg/dL (0.55-1.02); EST Glomerular Filtration Rate 71 mL/min (>60); Est Glom Filt Rate - Afr Amer 86 mL/min (>60); Estimated Creatinine Clearance 57.13 ml/min; Glucose 103 mg/dL (74-106); Potassium 3.7 mmol/L (3.5-5.1); Sodium Level 141 mmol/L (136-145)
[2020-06-27 11:22] VITALS: BP 162/82; PULSE 86; RESP 16; O2SAT 100
[2020-06-27 11:48] VITALS: BP 154/84; PULSE 71; RESP 15; O2SAT 97
== END 2020-06-27 11:49 | disposition home or self-care (01) ==
PROVIDERS: Emergency Provider Emergency Medicine; PCP Family Medicine
DX: Z77.098 Contact with and (suspected) exposure to other hazardous, chiefly nonmedicinal, chemicals (principal); J45.909 Unspecified asthma, uncomplicated
CPT/HCPCS: 71045; 80048; 85025; 99285

== ENCOUNTER → 2020-07-04 15:45 | Outpatient (CLI) | payer OTHER, SELFPAY ==
[2020-07-03 15:25] VITALS: BMI 21.5
[2020-07-11 05:37] LABS: HPV APTIMA, High Risk Negative (Negative); HPV Reflexed? NOT INDICATED
== END ==
PROVIDERS: PCP Family Medicine; Visit Provider Obstetrics & Gynecology
DX: Z12.4 Encounter for screening for malignant neoplasm of cervix (principal)
CPT/HCPCS: 88175; G0145

== ENCOUNTER → 2020-07-25 15:07 | Outpatient (CLI) | payer OTHER, SELFPAY ==
[2020-07-03 15:25] VITALS: BMI 21.5
--- NOTE | 2020-07-25 15:10 | BI_ITS ---
MAMMOGRAPHY - BILATERAL SCREENING REASON FOR EXAM: Female, 55 years old. Routine annual screening examination. PERTINENT HISTORY: Aunt with breast cancer. TECHNIQUE: Digital bilateral breast paz (3D mammographic acquisition) in the CC and MLO projections. 2-D mediolateral oblique (MLO) and craniocaudad (CC) views of both breasts were obtained. CAD: Full Field Digital Mammography with Computer Added Detection was performed. COMPARISON: Comparison is made with prior examination dated 07/17/2019 and 04/18/2018. FINDINGS: Breast Composition: There are scattered areas of fibroglandular density. There are no dominant masses or suspicious calcifications. No other significant abnormalities are identified. There has been no significant change since the prior study. BI/SCREEN MAMM (CAD) W/PAZ BILAT IMPRESSION: Stable bilateral screening mammogram. Yearly follow-up mammogram recommended. (A) ASSESSMENT CATEGORY: BIRADS Category 1: Negative. A letter regarding these results will be sent to the patient by the facility within 30 days. Approximately 10% of breast cancers are not detected by mammography. A normal mammogram should not delay biopsy of a clinically suspicious abnormality. [id number] Electronically Signed: Rafat James, at 15:50 EDT , Service support ,
== END ==
PROVIDERS: PCP Family Medicine; Referring Provider Obstetrics & Gynecology; Visit Provider Obstetrics & Gynecology
DX: Z12.31 Encounter for screening mammogram for malignant neoplasm of breast (principal)
CPT/HCPCS: 77063; 77067

== ENCOUNTER → 2020-11-18 09:34 | Outpatient (CLI) | payer OTHER, SELFPAY ==
[2020-07-03 15:25] VITALS: BMI 21.5
[2020-11-18 12:53] LABS: Erythrocyte Sedimentation Rate 10 mm/hr (0-30)
[2020-11-18 13:06] LABS: Anion Gap 8 (5-15); BUN 16 mg/dL (7-18); Calcium,Total 9.2 mg/dL (8.5-10.1); Chloride 108 mmol/L (98-107); EST Glomerular Filtration Rate 79 mL/min (>60); Est Glom Filt Rate - Afr Amer 95 mL/min (>60); Glucose 100 mg/dL (74-106); Potassium 3.9 mmol/L (3.5-5.1); Rheumatoid Factor < 10.0 IU/mL (<15); Sodium Level 140 mmol/L (136-145)
[2020-11-19 15:22] LABS: ANTINUCLEAR ANTIBODIES DIRECT Negative (Negative)
== END ==
PROVIDERS: PCP Family Medicine; Visit Provider Family Medicine
DX: M25.50 Pain in unspecified joint (principal)
CPT/HCPCS: 36415; 80048; 85652; 86038; 86431

== ENCOUNTER → 2020-11-20 15:39 | Outpatient (CLI) | payer OTHER, SELFPAY ==
[2020-07-03 15:25] VITALS: BMI 21.5
--- NOTE | 2020-11-20 15:41 | RAD_ITS ---
STUDY: X-RAY - LEFT HAND REASON FOR EXAM: Female, 55 years old. lump, marked on the lateral with a bb, 2nd proximal mc TECHNIQUE: 4 view(s) of the hand. COMPARISON: None. FINDINGS: Normal radiocarpal articulation. Normal distal radioulnar joint. Normal visualized carpal bones. Normal carpal articulations Normal carpometacarpal articulation of the thumb. Normal second through fifth carpometacarpal joints. Normal metacarpi. Normal metacarpophalangeal joint of the thumb. Normal interphalangeal joint of the thumb. Normal proximal and distal phalanges of the thumb. Normal metacarpophalangeal joints of the second through fifth fingers. Normal proximal and distal interphalangeal joints of the second through fifth fingers. Normal phalanges of the second through fifth fingers. The soft tissue structures are unremarkable. No abnormality in the suspected area of soft tissue lump RAD/Hand Min 3 Views IMPRESSION: Normal x-ray examination of the hand. Electronically Signed: Florentino Rocha DO at 6:43 EST Tel , Service support ,
== END ==
PROVIDERS: PCP Family Medicine; Referring Provider Family Medicine; Visit Provider Family Medicine
DX: M79.642 Pain in left hand (principal)
CPT/HCPCS: 73130

== ENCOUNTER 2021-05-13 07:55 | Day surgery (SDC) | payer OTHER, SELFPAY ==
[2021-04-16 09:00] VITALS: BMI 21.5
[2021-05-13] VITALS (7 sets, daily range): BP systolic 107–155; BP diastolic 72–92; PULSE 58–88; RESP 14–20; TEMP 36.1–37; O2SAT 97–99; BMI 21.2
[2021-05-13] MEDS: Lactated Ringers 1,000 ML 100 ML IV (08:31)
--- NOTE | 2021-05-13 08:51 | PCM.HP.BLA ---
History and Physical Date of Admission: 05/13/21 Intake Vital Signs 04/16/21 08:58 04/16/21 09:00 Height 5 ft 2 in Weight: 120 lb BMI 21.9 21.5 BP 184/89 H Blood Pressure Location Rt brachial Position Sitting Respiration 18 Pulse 77 Pulse Source NIBP Temp 98.1 F Temp Source Temporal Pulse Oximetry (%) 100 Oxygen Delivery Method room air Intake Visit Reasons: BLOODY STOOLS/ CSCOPE Chief Complaint: colonoscopy [employer] Required: No Is patient in pain?: No Allergies dog dander Allergy (Verified 04/16/21 08:59) Other minerals [From Enviro Stress] Allergy (Verified 04/16/21 08:59) Other mold Allergy (Verified 04/16/21 08:59) Swelling perfume Allergy (Verified 04/16/21 08:59) Angioedema envirvoment Allergy (Uncoded 06/27/20 10:05) Other SMOKE Allergy (Uncoded 06/27/20 10:05) Angioedema sulfites Allergy (Uncoded 06/27/20 10:05) Swelling Medications cetirizine 10 mg PO DAILY 04/27/19 [History Confirmed 04/16/21] fluticasone propionate 1 spray NASAL DAILY 04/27/19 [History Confirmed 04/16/21] mometasone 1 puff INHALATION DAILY 04/27/19 [History Confirmed 04/16/21] lbxchogn-ijc-bvjyw acid-vit K 1 ea PO DAILY 04/27/19 [History Confirmed 04/16/21] omega 1-njl-zda-fish oil 1,200 mg PO BID 04/27/19 [History Confirmed 04/16/21] B-complex with vitamin C 1 cap PO DAILY 05/03/19 [History Confirmed 04/16/21] vitamin E (dl, acetate) 400 unit capsule 400 unit PO DAILY 05/03/19 [History Confirmed 04/16/21] albuterol sulfate 1 - 2 puff INHALATION Q6H PRN PRN 05/19/19 [History Confirmed 04/16/21] Is last menstrual period known: No Post menopausal: Yes Patient : No PFSH Medical History Abdominal pain Asthma Cholelithiasis Chronic cholecystitis GERD (gastroesophageal reflux disease) Hypertension Nausea Surgical History History of dilation and curettage History of laparoscopic cholecystectomy (~05/26/19) History removal of wisdom teeth Family History Mother Thyroid disorder Hypertension Father Cancer Lung cancer CVA (cerebral vascular accident) Sister Diabetes Social History Smoking Status: Never smoker substance use type: does not use HPI HPI HPI: DOROTHY DIETRICH, is a 55 F who presents to the office today for blood in her stool. Last week she reports 1 day of bloody bowel movements. She says that it is bright red and it was on the stool. She was not having any abdominal pain and she continues to not have any abdominal pain. The blood in the stool has resolved. The patient has no family history of colon cancer. She has never had a colonoscopy. ROS General General: No weight change, appetite, fatigue, colon cancer, breast cancer or weakness HEENT HEENT: No difficulty swallowing, eye injury, eye surgery, swollen glands or hoarseness Endo Endocrine: No thyroid disease, diabetes mellitus, thyroid cancer, Hair loss, heat intolerance or cold intolerance Musc Musculoskeletal: No back problems, arthritis, rheumatoid arthritis, gout or joint pain Cardio Cardiovascular: No murmur, pacemaker, heart disease, atrial fibrillation, high blood pressure, heart attack, heart stent, palpitations, shortness of breat with exertion or chest pain Psych Psychiatric: No depression, anxiety or hearing voices Resp Respiratory: No shortness of breath, No sleep apnea, No cough, No COPD, Yes asthma, No emphysema and No wheezing Gastro Gastrointestinal: No abdominal pain, No nausea or vomiting, No diarrhea, No constipation, No blood in stool, No acid reflux, No hemorrhoids, No ulcers, No gallbladder problem and No black,tarry stools Monty Hematologic: No blood thinners, No blood disorders, No bleeding, No anemia and No blood clots Neuro Neurologic: No weakness Exam Const General: cooperative Orientation: alert and oriented x3 HENMT Head: normal to inspection Neck Neck: normal visual inspection and full ROM Chest Chest palpation & inspection: normal inspection of the chest Resp Effort & Inspection: normal respiratory effort Auscultation: clear to auscultation bilaterally Cardio Rate: regular rate Rhythm: regular rhythm GI Inspection: non-distended Palpation: soft and nontender Skin General: no rashes or lesions noted Neuro General: patient alert and patient oriented x3 Extrem General: full ROM Psych Appearance: grossly normal Mental Status: mental status grossly normal Assessment and Plan Assessment and Plan (1) Blood in stool: Status: Acute Orders: Orders: Colonoscopy Today Plan - Dr. Miguel A Bradshaw MD: Patient had 1 day of blood in her stool which has never happened since. Patient has never had a colonoscopy and I recommend that she have a colonoscopy. I explained endoscopy in detail to the patient. I explained the risks including but not limited to stroke or heart attack with anesthesia, perforation of the GI tract, bleeding, infection. I explained that any of these could necessitate further emergency surgery. The patient understands and all questions were answered sufficiently. The patient wishes to proceed with procedure. Miguel A Bradshaw MD Pager: [facility] [address] [place] [address], [address] [place] [address] Office: I have re-examined the patient. There are no clinical changes since date of exam. Assessment & Plan Assessment/Plan (1) Blood in stool:
--- NOTE | 2021-05-13 09:00 | COLBX_PTH ---
PATIENT: DOROTHY DIETRICH LOC: EN U#:[id number] AGE/SX: 55/F ROOM: RE05/13/[address]: Dr. Miguel A Bradshaw MD : 1965 BED: DIS: 05/13/2021 SPEC #: [id number] RECD: 05/13/21 12:45 STATUS: [place] #: [id number] CHRISTINA: 05/13/21 09:[address]: Miguel A Bradshaw DEPT: SURGICAL PATHOLOGY RECD BY: Tamara Moody ENTERED: 05/13/21 13:18 SP TYPE: COLON BX OTHR DR: Dr. Emanuel Gregory MD Tissues: Descending colon Procedures: Surgery Specimen Level IV HEADER OPERATION: Colonoscopy (MAC) PRE-OP DIAGNOSIS: Blood in stool TISSUE SUBMITTED: Descending colon polyp MICROSCOPIC DIAGNOSIS Descending colon polyp, biopsy: Tubular adenoma. JENN:sarah 05/14/2021 MICROSCOPIC DESCRIPTION Slides are reviewed. GROSS DESCRIPTION Received in fixative is one container labeled with the patient's name and designated descending colon polyp. The specimen consists of one irregular fragment of light guaman soft tissue that measures 0.5 x 0.5 x 0.1 cm. The specimen is totally submitted in one cassette. / AM:sarah 05/13/21 TC:1 CPT: 70426
--- NOTE | 2021-05-13 09:25 | OP.COLON_ITS ---
Patient Name: Isabelle Casper Procedure Date: 05/13/2021 8:47 AM Date of : 1965 Age: 55 Procedure: Colonoscopy Indications: Hematochezia Providers: Miguel A Bradshaw MD Medicines: Monitored Anesthesia Care Patient Profile: This is a 55 year old female. Refer to note in patient chart for documentation of history and physical. Last Colonoscopy: none. The patient's first colonoscopy is today. Complications: No immediate complications. Procedure: Pre-Anesthesia Assessment: - Prior to the procedure, a History and Physical was performed, and patient medications and allergies were reviewed. The patient's tolerance of previous anesthesia was also reviewed. The risks and benefits of the procedure and the sedation options and risks were discussed with the patient. All questions were answered, and informed consent was obtained. Prior Anticoagulants: The patient has taken no previous anticoagulant or antiplatelet agents. After reviewing the risks and benefits, the patient was deemed in satisfactory condition to undergo the procedure. After I obtained informed consent, the scope was passed under direct vision. Throughout the procedure, the patient's blood pressure, pulse, and oxygen saturations were monitored continuously. The colonoscope was introduced through the anus and advanced to the cecum, identified by appendiceal orifice and ileocecal valve. The colonoscopy was performed without difficulty. The patient tolerated the procedure well. The quality of the bowel preparation was good. Scope In: 9:06:34 AM Scope Withdrawal Time 0 hours 6 minutes 1 second Scope Out: 9:18:24 AM Total Procedure Duration Time 0 hours 11 minutes 50 seconds Findings: A small polyp was found in the descending colon. The polyp was removed with a hot snare. Resection and retrieval were complete. The exam was otherwise without abnormality on direct and retroflexion views. Impression: - One small polyp in the descending colon, removed with a hot snare. Resected and retrieved. - The examination was otherwise normal on direct and retroflexion views. Recommendation: - Discharge patient to home. - Resume previous diet. - Continue present medications. - Await pathology results. - Repeat colonoscopy in 5 years for surveillance based on pathology results. Procedure Code(s): --- Professional --- 53917, Colonoscopy, flexible; with removal of tumor(s), polyp(s), or other lesion(s) by snare technique Diagnosis Code(s): --- Professional --- D12.4, Benign neoplasm of descending colon K92.1, Melena (includes Hematochezia) CPT copyright 2017 [employer]. All rights reserved. The codes documented in this report are preliminary and upon disciplinary hearing officer review may be revised to meet current compliance requirements. Miguel A Bradshaw MD 05/13/2021 9:25:02 AM This report has been signed electronically. Number of Addenda: 0 Note Initiated On: 05/13/2021 8:47 AM
--- NOTE | 2021-05-13 09:26 | OP.CCLET_ITS ---
05/13/2021 Maurisio Gregory [address] [place] [address] Re : Colonoscopy procedure for Isabelle Casper Dear Dr. Gregory This procedure was performed on Thursday, May 13, 2021. My impressions and recommendations are as follows: Impressions : - One small polyp in the descending colon, removed with a hot snare. Resected and retrieved. - The examination was otherwise normal on direct and retroflexion views. Recommendations : - Discharge patient to home. - Resume previous diet. - Continue present medications. - Await pathology results. - Repeat colonoscopy in 5 years for surveillance based on pathology results. My findings are described in the full procedure note, which is enclosed. If I can be of further assistance, please feel free to contact me at Doctor phone number(s): , Work: . Sincerely, Miguel A Bradshaw MD 05/13/2021 9:25:02 AM This report has been signed electronically.
== END 2021-05-13 10:07 ==
LOC: EN 07:59 → AC 08:01
PROVIDERS: PCP Family Medicine; Referring Provider Family Medicine; Visit Provider Surgery
PROC: 0DJD8ZZ Inspection of Lower Intestinal Tract, Via Natural or Artificial Opening Endoscopic (ICD-10-PCS; CPT 45378; principal; 2021-05-13 08:55)
DX: D12.4 Benign neoplasm of descending colon (principal); J45.909 Unspecified asthma, uncomplicated; Z79.51 Long term (current) use of inhaled steroids; Z79.899 Other long term (current) drug therapy; Z78.0 Asymptomatic menopausal state
CPT/HCPCS: 45385; 88305; J7120; J2405

== ENCOUNTER 2021-06-25 15:53 | Emergency (ER) | payer OTHER, SELFPAY ==
[2021-06-25 15:54] VITALS: BP 185/83; PULSE 93; RESP 18; TEMP 36.7; BMI 22.4
--- NOTE | 2021-06-25 16:03 | EDS_ITS ---
HPI History of Present Illness Chief Complaint: Allergic Reaction Informant: patient Onset/Context/Timing Onset: Hours (2) Context: Gradual Onset (about 30 min after being stung on finger by a hornet) Timing: Continuous Quality: tingling Location: tongue Current Severity: Mild Maximum Severity: Mild Worsened by: nothing Relieved by: nothing Associated Symptoms Associated Symptoms: I feel like there are little rocks in my throat Narrative Narrative: Patient does not have an anaphylactic allergy to bee stings that she knows of, but she was stung on the right little finger by a hornet today. This occurred 2 hours prior to evaluation here in emergency department, and about 30 minutes after that her tongue started feeling tingly and she has this unusual sensation in her. She has allergic asthma that has not been triggered. She has some swelling and pain at the sting site on her right little finger, but no itching, she has developed no rash or swelling elsewhere and no systemic symptoms or lightheadedness. She states she was seen at urgent care and given Benadryl just prior to being sent here for further evaluation. [facility] Medical History (Updated 06/25/21 @ 16:13 by Ian RUBIO, RAMIRO) Abdominal pain Alcohol use Asthma Bee sting Cholelithiasis Chronic cholecystitis Hypertension Nausea Non-smoker Post-menopausal Wears glasses Home Medications cetirizine 10 mg PO DAILY 04/27/19 [History Last Taken Unknown] fluticasone propionate 1 spray NASAL DAILY 04/27/19 [History Last Taken Unknown] mometasone 1 puff INHALATION DAILY 04/27/19 [History Last Taken 05/13/21 1 PUFF] lnlwvahb-aob-hlzoz acid-vit K 1 ea PO DAILY 04/27/19 [History Last Taken Unknown] omega 9-vkg-kuu-fish oil 1,200 mg PO BID 04/27/19 [History Last Taken Unknown] B-complex with vitamin C 1 cap PO DAILY 05/03/19 [History Last Taken Unknown] vitamin E (dl, acetate) 180 mg (400 unit) capsule 400 unit PO DAILY 05/03/19 [History Last Taken Unknown] albuterol sulfate 1 - 2 puff INHALATION Q6H PRN PRN 05/19/19 [History Last Taken Unknown] Allergy/AdvReac Type Severity Reaction Status Date / Time dog dander Allergy Other Verified 06/25/21 14:59 minerals [From Enviro Stress] Allergy Other Verified 06/25/21 14:59 mold Allergy Swelling Verified 06/25/21 14:59 perfume Allergy Angioedema Verified 06/25/21 14:59 envirvoment Allergy Other Uncoded 05/08/21 14:37 SMOKE Allergy Angioedema Uncoded 05/08/21 14:37 sulfites Allergy Swelling Uncoded 05/08/21 14:37 Family History Mother Thyroid disorder Hypertension Father Cancer Lung cancer CVA (cerebral vascular accident) Sister Diabetes Surgical History History of dilation and curettage History of laparoscopic cholecystectomy (~05/26/19) History removal of wisdom teeth Social History Smoking Status: Never smoker substance use type: does not use ROS ROS ED Constitutional Constitutional ED: Denies chills or fever(s) Eyes Eyes: Denies change in vision or diplopia ENT ENT ED: Reports as per HPI; Denies rhinorrhea or sore throat Cardiovascular Cardiovascular: Denies chest pain or palpitations Respiratory/Chest Respiratory/Chest: Denies cough or dyspnea Gastrointestinal Gastrointestinal: Denies abdominal pain, diarrhea, nausea or vomiting Genitourinary Genitourinary ED: Denies dysuria or hematuria Musculoskeletal Musculoskeletal: Denies back pain or neck pain Integumentary Denies abscess or rash Neurologic Neurologic: Denies headache(s), paresthesias or weakness Psychiatric Psychiatric: Denies anxiety or suicidal thoughts EXAM Physical Exam Const Vital Signs: 06/25/21 15:54 06/25/21 17:17 Temperature 98.1 F Temperature Source Oral Pulse Rate 93 79 Respiratory Rate 18 18 Blood Pressure 185/83 H 162/78 H Blood Pressure Mean 117 106 Oxygen Delivery Method Room Air Room Air Positive well nourished and well developed Constitutional Narrative: Well-appearing, conversive in full sentences in no distress General Appearance ED: well developed and NAD HEENT Reports moist mucous membranes HEENT Narrative: Tongue is normal-appearing with no edema. No sublingual edema or abnormality. No trismus. Normal voice, no stridor. normocephalic and atraumatic Eyes PERRL and EOMs intact bilaterally Neck full ROM and supple Resp normal respiratory effort and clear to auscultation bilaterally Cardio regular rate, regular rhythm and no murmurs Rate: Negative for tachycardic GI non-tender and non-distended Auscultation: normoactive bowel sounds Palpation: soft Back/Spine no CVA tenderness General Back: other FROM Extremity normal to inspection General Extremety ED: Negative for edema, pulses abnormal or tenderness General Extremity: Negative for edema or pulses abnormal Neuro oriented x3, CN's II-XII intact bilaterally and no sensory deficits noted Sensorium / Orientation: awake and alert Motor Exam: strength 5/5 throughout Skin Skin Narrative: There is a minor amount of erythema and swelling surrounding sting site lateral aspect of the proximal right small finger. No lymphangitis. No drainage from the sting site or stinger left. Full range of motion of the finger. No urticaria or other rash. MDM MDM MDM Narrative Medical decision making narrative: Patient is not anaphylactic. She was reassured, and agreed to be observed in the emergency department for 2 hours, she had resolution of her tongue and throat symptoms and developed no other symptoms. She is reassured and discharged in stable condition I do not think she needs prednisone or an EpiPen for this encounter. Discharge Plan Triage Chief Complaint: Allergic Reaction ED Provider: Franki Baires Dx/Rx/DC Orders Clinical Impression: Hymenoptera sting Instructions: Insect Bites and Stings Prescriptions: No Action B-complex with vitamin C Capsule 1 cap PO DAILY RF: 0 vitamin E (dl, acetate) 400 unit capsule 400 unit PO DAILY RF: 0 omega 7-eeo-rbw-fish oil 500 MG capsule,delayed release(DR/EC) 1,200 mg PO BID RF: 0 twwkwdrq-opg-dddpx acid-vit K 1 EACH capsule 1 ea PO DAILY RF: 0 fluticasone propionate 1 SPRAY spray,suspension 1 spray NASAL DAILY RF: 0 mometasone 220 MCG inhaler 1 puff inhalation DAILY RF: 0 cetirizine 10 MG capsule 10 mg PO DAILY RF: 0 albuterol sulfate 1 PUFF inhaler 1 - 2 puff inhalation Q6H PRN PRN (Reason: Asthma) RF: 0 Primary Care Provider: Maurisio Gregory Referrals: Maurisio Gregory MD [Primary Care Provider] - As Needed Disposition Disposition: Home, Self Care
[2021-06-25 17:17] VITALS: BP 162/78; PULSE 79; RESP 18
[2021-06-25 18:04] VITALS: BP 145/92; PULSE 82; RESP 18
== END 2021-06-25 18:06 | disposition home or self-care (01) ==
PROVIDERS: Emergency Provider Emergency Medicine; PCP Family Medicine
DX: T78.40XA Allergy, unspecified, initial encounter (principal); W57.XXXA Bitten or stung by nonvenomous insect and other nonvenomous arthropods, initial encounter
CPT/HCPCS: 99282

== ENCOUNTER → 2021-07-08 12:26 | Outpatient (CLI) | payer OTHER, SELFPAY | PROVIDERS: PCP Family Medicine; Visit Provider Physician Assistant Surgical | DX: Z11.52 Encounter for screening for COVID-19 (principal) | CPT/HCPCS: 87635; U0005; U0003 ==

== ENCOUNTER → 2021-07-21 15:13 | Outpatient (CLI) | payer OTHER, SELFPAY | PROVIDERS: PCP Family Medicine; Referring Provider Specialist; Visit Provider Specialist | DX: Z91.038 Other insect allergy status (principal) | CPT/HCPCS: 36415; 83520 ==

== ENCOUNTER → 2021-09-08 15:09 | Outpatient (CLI) | payer OTHER, SELFPAY ==
--- NOTE | 2021-09-08 15:11 | BI_ITS ---
MAMMOGRAPHY - BILATERAL SCREENING REASON FOR EXAM: Female, 56 years old. Routine annual screening examination. PERTINENT HISTORY: Aunt with breast cancer. TECHNIQUE: Digital bilateral breast paz (3D mammographic acquisition) in the CC and MLO projections. 2-D mediolateral oblique (MLO) and craniocaudad (CC) views of both breasts were obtained. CAD: Full Field Digital Mammography with Computer Added Detection was performed. COMPARISON: Comparison is made with prior study dated 07/25/2020 and 07/17/2019. FINDINGS: Breast Composition: There are scattered areas of fibroglandular density. There are no dominant masses or suspicious calcifications. No other significant abnormalities are identified. There has been no significant change since the prior study. BI/SCRN MAMM (CAD)W/PAZ BILAT IMPRESSION: Stable bilateral screening mammogram. Yearly follow-up mammogram recommended. (A) ASSESSMENT CATEGORY: BIRADS Category 1: Negative. A letter regarding these results will be sent to the patient by the facility within 30 days. Approximately 10% of breast cancers are not detected by mammography. A normal mammogram should not delay biopsy of a clinically suspicious abnormality. [id number] Electronically Signed: Rafat James MD at 9:02 EST , Service support ,
== END ==
PROVIDERS: PCP Family Medicine; Referring Provider Obstetrics & Gynecology; Visit Provider Obstetrics & Gynecology
DX: Z12.31 Encounter for screening mammogram for malignant neoplasm of breast (principal)
CPT/HCPCS: 77063; 77067

== ENCOUNTER 2021-11-22 06:57 | Outpatient (CLI) | payer OTHER, SELFPAY ==
[2021-11-22 08:55] LABS: Anion Gap 6 (5-15); BUN 17 mg/dL (7-18); BUN/Creat Ratio 20.3 RATIO (10-20); Calcium,Total 8.9 mg/dL (8.5-10.1); Chloride 108 mmol/L (98-107); Cholesterol 291 mg/dL (200); Creatinine, Serum 0.84 mg/dL (0.55-1.02); EST Glomerular Filtration Rate 75 mL/min (>60); Est Glom Filt Rate - Afr Amer 90 mL/min (>60); Glucose 92 mg/dL (74-106); High Density Lipoprotein 80 mg/dL; Potassium 3.7 mmol/L (3.5-5.1); Sodium Level 139 mmol/L (136-145); Thyroid Stim Hormone (TSH) 1.59 uIU/mL (0.358-3.74); Triglycerides 119 mg/dL; Very Low Density Lipoprotein 24 mg/dL (5-40)
[2021-11-24 08:41] LABS: Vitamin D,25 Hydroxy 21.7 ng/mL
== END 2021-11-22 23:59 | disposition short-term general hospital (02) ==
LOC: LAB 07:00
PROVIDERS: PCP Family Medicine; Visit Provider Family Medicine
DX: Z00.00 Encounter for general adult medical examination without abnormal findings (principal); Z13.29 Encounter for screening for other suspected endocrine disorder; Z13.1 Encounter for screening for diabetes mellitus; Z13.21 Encounter for screening for nutritional disorder
CPT/HCPCS: 36415; 80048; 80061; 82306; 84443

== ENCOUNTER → 2022-09-17 | Outpatient (CLI) | payer OTHER, SELFPAY ==
--- NOTE | 2022-09-17 16:06 | BI_ITS ---
MAMMOGRAPHY - BILATERAL SCREENING REASON FOR EXAM: Female, 57 years old. Routine annual screening examination. PERTINENT HISTORY: Aunt with breast cancer. TECHNIQUE: Digital bilateral breast paz (3D mammographic acquisition) in the CC and MLO projections. 2-D mediolateral oblique (MLO) and craniocaudad (CC) views of both breasts were obtained. CAD: Full Field Digital Mammography with Computer Added Detection was performed. COMPARISON: Comparison is made with prior study dated 09/08/2021 and 07/25/2020. FINDINGS: Breast Composition: There are scattered areas of fibroglandular density. There is a 5.8 mm x 3.8 mm nodular density in the deep central lateral aspect of the right breast. The patient will be recalled for additional views including 90 degree lateral and compression views. No other significant abnormalities are identified. BI/SCRN MAMM (CAD)W/PAZ BILAT IMPRESSION: 5.8 mm x 3.8 mm nodular density in the deep central lateral aspect of the right breast as described. The patient will be recalled for additional views. ASSESSMENT CATEGORY: BIRADS Category 0: Incomplete. Need additional imaging evaluation. A letter regarding these results will be sent to the patient by the facility within 30 days. Approximately 10% of breast cancers are not detected by mammography. A normal mammogram should not delay biopsy of a clinically suspicious abnormality. [id number] Electronically Signed: Rafat James MD at 8:22 EST ,
== END | disposition home or self-care (01) ==
LOC: OPBI 09-18 07:09
PROVIDERS: PCP Family Medicine; Referring Provider Student in an Organized Health Care Education/Training Program; Visit Provider Student in an Organized Health Care Education/Training Program
DX: Z12.31 Encounter for screening mammogram for malignant neoplasm of breast (principal)
CPT/HCPCS: 77063; 77067

== ENCOUNTER → 2022-09-21 | Outpatient (CLI) | payer OTHER, SELFPAY ==
--- NOTE | 2022-09-21 08:45 | US_ITS ---
STUDY: ULTRASOUND BREAST - RIGHT REASON FOR EXAM: Female, 57 years old. Workup of densities on mammogram dated September 17, 2022 and right diagnostic mammogram dated September 21, 2022. TECHNIQUE: Axial and longitudinal images of the RIGHT breast were performed with a high resolution ultrasound transducer. # OF IMAGES: 16 COMPARISON: Bilateral mammogram dated September 17, 2022 and right diagnostic mammogram dated September 21, 2022. FINDINGS: RIGHT Breast: At the 9:00 position of the right breast approximately 9 cm from the nipple there is a cluster of small cysts, one of which has a slightly thickened wall. There are no suspicious findings for this lesion which measures 3 mm x 2 mm x 3 mm. It is recommended that the patient return for a right diagnostic mammogram and a targeted right breast ultrasound in 6 months to a sure the stability of this lesion. No other abnormality. US/Breast Limited Unilateral IMPRESSION: Probable benign cluster of cysts in the right breast. Six-month follow-up right diagnostic mammogram and targeted right breast ultrasound recommended. See discussion above. ASSESSMENT CATEGORY: BIRADS Category 3: Probably Benign - Short-Interval Follow-up Suggested. A letter regarding these results will be sent to the patient by the facility within 30 days. Electronically Signed: Dewey , at 9:57 EST ,
--- NOTE | 2022-09-21 08:45 | BI_ITS ---
MAMMOGRAPHY - UNILATERAL DIAGNOSTIC: RIGHT BREAST REASON FOR EXAM: Female, 57 years old. Right breast density. PERTINENT HISTORY: Noncontributory. TECHNIQUE: Digital examination. Mediolateral oblique (MLO) and craniocaudad (CC) views of the breast were obtained. CAD: CAD was not performed on this study. COMPARISON: September 17, 2022, September 08, 2021. FINDINGS: Breast Composition: There are scattered areas of fibroglandular density. Circumscribed partially obscured densities in the right breast. Ultrasound of the right breast showed 2 cysts, one of which have a thickened wall. No aggressive features. A six-month follow-up right diagnostic mammogram and repeat targeted right breast ultrasound recommended in 6 months. BI/DIAG MAMM W/CAD, UNILAT IMPRESSION: Finding most compatible with a cluster of small cysts. 6 month follow-up diagnostic right mammogram and targeted right breast ultrasound recommended. ASSESSMENT CATEGORY: BIRADS Category 3: Probably Benign - Short-Interval Follow-up Suggested. A letter regarding these results will be sent to the patient by the facility within 30 days. FOLLOW-UP RECOMMENDATION: Follow-up recommended within 6 months. (C) Approximately 10% of breast cancers are not detected by mammography. A normal mammogram should not delay biopsy of a clinically suspicious abnormality. Electronically Signed: Dewey Duran, at 10:01 EST ,
== END | disposition home or self-care (01) ==
LOC: OPBI 08:41
PROVIDERS: PCP Family Medicine; Visit Provider Student in an Organized Health Care Education/Training Program
DX: R92.2 Inconclusive mammogram (principal); N60.01 Solitary cyst of right breast
CPT/HCPCS: 76642; 77065

== ENCOUNTER → 2023-01-27 | Outpatient (CLI) | payer OTHER, SELFPAY ==
[2023-01-27 11:10] LABS: Anion Gap 7 (5-15); BUN 17 mg/dL (7-18); BUN/Creat Ratio 20.5 RATIO (10-20); Calcium,Total 9.1 mg/dL (8.5-10.1); Chloride 107 mmol/L (98-107); Cholesterol 286 mg/dL (200); Creatinine, Serum 0.83 mg/dL (0.55-1.02); EST Glomerular Filtration Rate 75 mL/min (>60); Est Glom Filt Rate - Afr Amer 91 mL/min (>60); Glucose 95 mg/dL (74-106); High Density Lipoprotein 60 mg/dL; Sodium Level 139 mmol/L (136-145); Triglycerides 269 mg/dL; Very Low Density Lipoprotein 54 mg/dL (5-40); Vitamin D,25 Hydroxy 24.7 ng/mL
== END | disposition home or self-care (01) ==
LOC: MFPLAB 08:30
PROVIDERS: PCP Family Medicine; Referring Provider Family Medicine; Visit Provider Family Medicine
DX: R03.0 Elevated blood-pressure reading, without diagnosis of hypertension (principal); E55.9 Vitamin D deficiency, unspecified; E78.5 Hyperlipidemia, unspecified
CPT/HCPCS: 36415; 80048; 80061; 82306

== ENCOUNTER → 2023-03-04 | Outpatient (CLI) | payer OTHER, SELFPAY ==
--- NOTE | 2023-03-04 14:22 | US_ITS ---
STUDY: ULTRASOUND BREAST - RIGHT REASON FOR EXAM: Female, 57 years old. Abnormal screening mammogram. TECHNIQUE: Axial and longitudinal images of the RIGHT breast were performed with a high resolution ultrasound transducer. # OF IMAGES: 6 COMPARISON: Comparison is made with prior mammogram done earlier in the day as well as prior sonogram of the right breast dated September 21, 2022. FINDINGS: RIGHT Breast: There is a 3 mm x 2 mm x 2 mm cyst at the 9:00 position of the breast at 9 cm from the nipple. US/Breast Limited Unilateral IMPRESSION: Stable 3 mm x 2 mm x 2 mm cyst at the 9:00 position of the breast at 9 cm from the nipple. ASSESSMENT CATEGORY: BIRADS Category 2: Benign. A letter regarding these results will be sent to the patient by the facility within 30 days. Electronically Signed: Rafat James MD at 11:25 EDT ,
--- NOTE | 2023-03-04 14:22 | BI_ITS ---
MAMMOGRAPHY - UNILATERAL DIAGNOSTIC: RIGHT BREAST REASON FOR EXAM: Female, 57 years old. 6 month follow-up examination. PERTINENT HISTORY: Aunt with breast cancer. TECHNIQUE: Digital unilateral breast carole (3D mammographic acquisition) in the CC and MLO projections. 2-D mediolateral oblique (MLO) and craniocaudad (CC) views of both breasts were obtained. CAD: Full Field Digital Mammography with Computer Added Detection was performed. COMPARISON: Comparison is made with prior study dated September 17, 2022 and September 21, 2022. FINDINGS: Breast Composition: There are scattered areas of fibroglandular density. Stable 6 mm nodular density in the central lateral aspect of the left breast. No other significant abnormalities are identified. There has been no significant change since the prior study. BI/DIAG MAMM W/CAD, UNILAT IMPRESSION: Stable unilateral diagnostic mammogram. Correlation with ultrasound is recommended. ASSESSMENT CATEGORY: BIRADS Category 0: Incomplete. Need additional imaging evaluation. A letter regarding these results will be sent to the patient by the facility within 30 days. Approximately 10% of breast cancers are not detected by mammography. A normal mammogram should not delay biopsy of a clinically suspicious abnormality. Electronically Signed: Rafat James MD at 15:29 EDT ,
== END | disposition home or self-care (01) ==
PROVIDERS: PCP Family Medicine; Referring Provider Student in an Organized Health Care Education/Training Program; Visit Provider Student in an Organized Health Care Education/Training Program
DX: R92.2 Inconclusive mammogram (principal)
CPT/HCPCS: 76642; 77061; 77065; G0279

== ENCOUNTER → 2024-01-31 | Outpatient (CLI) | payer OTHER, SELFPAY ==
[2024-01-31 10:30] LABS: Vitamin D,25 Hydroxy 30.4 ng/mL
[2024-01-31 10:57] LABS: Anion Gap 5 (5-15); BUN 16 mg/dL (7-18); BUN/Creat Ratio 15.5 RATIO (10-20); Calcium,Total 9.4 mg/dL (8.5-10.1); Chloride 110 mmol/L (98-107); Cholesterol 273 mg/dL (200); Creatinine, Serum 1.03 mg/dL (0.55-1.02); EST Glomerular Filtration Rate 58 mL/min (>60); Est Glom Filt Rate - Afr Amer 70 mL/min (>60); Glucose 114 mg/dL (74-106); High Density Lipoprotein 51 mg/dL; Potassium 3.8 mmol/L (3.5-5.1); Sodium Level 140 mmol/L (136-145); Triglycerides 333 mg/dL; Very Low Density Lipoprotein 67 mg/dL (5-40)
== END | disposition home or self-care (01) ==
LOC: MFPLAB 09:17
PROVIDERS: PCP Family Medicine; Visit Provider Family Medicine
DX: E78.5 Hyperlipidemia, unspecified (principal); E55.9 Vitamin D deficiency, unspecified; Z13.1 Encounter for screening for diabetes mellitus
CPT/HCPCS: 36415; 80048; 80061; 82306

== ENCOUNTER → 2024-03-06 | Outpatient (CLI) | payer OTHER, SELFPAY ==
--- NOTE | 2024-03-06 07:04 | BI_ITS ---
MAMMOGRAPHY - BILATERAL SCREENING REASON FOR EXAM: Female, 58 years old. Routine annual screening examination. PERTINENT HISTORY: Aunt with breast cancer. TECHNIQUE: Digital bilateral breast paz (3D mammographic acquisition) in the CC and MLO projections. 2-D mediolateral oblique (MLO) and craniocaudad (CC) views of both breasts were obtained. CAD: Full Field Digital Mammography with Computer Added Detection was performed. COMPARISON: Comparison is made with prior study September 17, 2022 and March 04, 2023. FINDINGS: Breast Composition: There are scattered areas of fibroglandular density. There are no dominant masses or suspicious calcifications. Stable 6 mm nodular density in the central lateral aspect of the right breast. This was demonstrated to be a small cyst on prior sonogram. No other significant abnormalities are identified. There has been no significant change since the prior study. BI/SCRN MAMM (CAD)W/PAZ BILAT IMPRESSION: Stable bilateral screening mammogram. Yearly follow-up mammogram recommended. (A) ASSESSMENT CATEGORY: BIRADS Category 2: Benign. A letter regarding these results will be sent to the patient by the facility within 30 days. Approximately 10% of breast cancers are not detected by mammography. A normal mammogram should not delay biopsy of a clinically suspicious abnormality. [id number] Electronically Signed: Rafat James MD at 9:38 EDT ,
== END | disposition home or self-care (01) ==
LOC: OPBI 07:02
PROVIDERS: PCP Family Medicine; Referring Provider Family Medicine; Visit Provider Family Medicine
DX: Z12.31 Encounter for screening mammogram for malignant neoplasm of breast (principal)
CPT/HCPCS: 77063; 77067

== ENCOUNTER → 2025-01-31 | Outpatient (CLI) | payer OTHER, SELFPAY ==
[2025-01-31 13:38] LABS: ALB/GLOB Ratio 1.6 RATIO (0.9-2.4); AST(SGOT) 35 U/L (<=31); Alanine Aminotransfer ALT/SGPT 68 U/L (<=34); Albumin, Serum 4.7 g/dL (3.4-4.8); Alkaline Phosphatase 64 U/L (35-104); Anion Gap 12 (5-15); BUN 17 mg/dL (4-19); BUN/Creat Ratio 17.7 RATIO (10-20); Calcium,Total 10.4 mg/dL (7.6-11.0); Chloride 106 mmol/L (98-108); Creatinine, Serum 0.94 mg/dL (0.70-1.20); EST Glomerular Filtration Rate 69 (>60); Globulin 2.9 g/dL (2.2-4.2); Glucose 100 mg/dL (70-99); Potassium 3.8 mmol/L (3.3-5.1); Protein, Total 7.6 g/dL (5.9-8.4); Sodium Level 141 mmol/L (133-145); Total Bilirubin 0.54 mg/dL (0.00-1.30); Vitamin D,25 Hydroxy 33.9 ng/mL (30-100)
== END | disposition home or self-care (01) ==
LOC: MFPLAB 09:29
PROVIDERS: PCP Family Medicine; Referring Provider Family Medicine; Visit Provider Family Medicine
DX: E78.5 Hyperlipidemia, unspecified (principal); Z13.29 Encounter for screening for other suspected endocrine disorder
CPT/HCPCS: 36415; 80053; 82306; 84443

== ENCOUNTER → 2025-03-13 | Outpatient (CLI) | payer OTHER, SELFPAY ==
--- NOTE | 2025-03-13 06:52 | BI_ITS ---
EXAM: SCRN MAMM (CAD)W/PAZ BILAT DATE: 03/13/2025 CLINICAL HISTORY: F, Age 59 y/o , SCREENING Aunt with breast cancer. BREAST CANCER RISK ASSESSMENT: Not assessed. TECHNIQUE: Bilateral screening digital breast tomosynthesis with 2D and 3D images. Computer aided detection. COMPARISON: Prior exam(s) dated March 06, 2024.. FINDINGS: TISSUE DENSITY: The breast tissue is composed of scattered area of fibroglandular density. Stable 6 mm well-defined nodule in the central lateral aspect of the right breast. This was demonstrated to be a cyst on prior sonogram. Bilateral Breast Mammographic Findings: No significant masses, calcifications or other abnormalities are identified. No suspicious masses, areas of developing architectural distortion, or suspicious calcifications. There has been no significant interval change. BI/SCRN MAMM (CAD)W/PAZ BILAT IMPRESSION: OVERALL FINAL ASSESSMENT: BIRADS 2 BENIGN FINDING RECOMMENDATION: Routine annual follow-up in 1 Year A letter with findings and recommendations will be mailed to the patient. Reading Location: [id number]
--- NOTE | 2025-03-13 06:55 | BD_ITS ---
PROCEDURE: DEXA BONE DENSITY STUDY 03/13/2025 REASON FOR EXAM: F, age 59 y/o . Postmenopausal. TECHNIQUE: DXA scan of sites with data reported below. REFERENCE LINKS: ISCD Adult Positions COMPARISON: None FINDINGS: BMD and T-SCORES Lumbar spine: 0.839 g/cm2, T-score -1.9 Levels: L1 through L4 Left femoral neck: 0.614 g/cm2, T-score -2.1 Femoral neck comparison data not recommended for monitoring change. Left total hip: 0.776 g/cm2, T-score -1.4 Right femoral neck: 0.629 g/cm2, T-score -2.0 Femoral neck comparison data not recommended for monitoring change. Right total hip: 0.745 g/cm2, T-score -1.6 The World Health Organization has defined the following categories based on bone density: Normal bone density: T-score equal to or greater than -1.0 Osteopenia: T-score between -1.0 and -2.5 Osteoporosis: T-score equal to or less than -2.5 The patient does meet the pharmacological treatment recommendations for prevention of osteoporosis. BD/Dexa Bone Density Study IMPRESSION: OSTEOPENIA. Recommend follow-up as clinically warranted. Reading Location: [facility]
== END | disposition home or self-care (01) ==
LOC: OPBD 06:50
PROVIDERS: PCP Family Medicine; Referring Provider Family Medicine; Visit Provider Family Medicine
DX: Z12.31 Encounter for screening mammogram for malignant neoplasm of breast (principal); Z78.0 Asymptomatic menopausal state
CPT/HCPCS: 77063; 77067; 77080

== ENCOUNTER → 2025-07-26 | Outpatient (CLI) | payer OTHER, SELFPAY ==
--- OUTSIDE RECORDS SUMMARY | 2025-07-26 07:05 | XMS RPT_ITS | CCD ---
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 Castellanos Primary Care Provider Bri SANTOS, Dr. Castellanos Attending Provider Bri SANTOS, Dr. Castellanos Referring Provider Adrian Johnson Referring Unavailable Adrian Johnson Attending Unavailable Adrian Johnson Primary Care Unavailable Adrian Johnson Referring Unavailable Adrian Johnson Attending Unavailable Adrian Johnson Primary Care Unavailable Allergies Allergy Classification Reported Allergen(s) Allergy Type Date of Onset Reaction(s) Facility (8 sources) Mold Extract Drug Allergy 1 Swelling [facility] (3 sources) Sulfites Allergy to substance 1 Swelling [facility] Work Phone: (8 sources) dog dander Allergy to substance 1 Other [facility] Comment on above: SINUS DRAINAGE (9 sources) minerals; Translations: [minerals] Allergy to substance 1 [facility] Comment on above: SINUS DRAINAGE (9 sources) perfume; Translations: [perfume] Allergy to substance 1 Angioedema [facility] (3 sources) envirvoment Allergy to substance 10-23-202 1 [facility] Work Phone: (4 sources) SMOKE Allergy to substance 1 Angioedema [facility] (6 sources) Sulfites; Translations: [sulfite] Allergy to substance 2 Swelling [facility] (6 sources) Environmental Allergies: Uncoded; Translations: [Environmental Allergies: Uncoded] Allergy to substance 2 SINUS DRAINAGE [facility] (5 sources) cigarette smoke; Translations: [cigarette smoke] Allergy to substance 3 Angioedema [facility] (1 source) Mold Extract Drug Allergy 1 [facility] Repository (1 source) dog dander Drug allergy (disorder) 1 [facility] Repository Medications Current Medications Medication Drug Class(es) Dates Sig (Normalized) Sig (Original) [id number] actuat albuterol 0.09 mg/actuat metered dose inhaler (8 sources) beta2-Adrenergic Agonist Start: 05-19-2019 Albuterol Sulfate 1 PUFF inhaler Active 1 - 2 NMA INHALATION EVERY 6 HOURS NEEDED as needed for Asthma May 19, 2019 12:00am Start: 05-19-2019 take 1 puff(s) by in halation every six hours as needed Albuterol Sulfate Active 1 - 2 PUFF INHALATION EVERY 6 HOURS NEEDED May 19, 2019 12:00am azithromycin 250 mg oral tablet (16 sources) Macrolide Antimicrobial Start: 10-23-2021 take 2-5 tablets by mouth once daily Azithromycin 250 mg tablet Active 0 PO .COMPLEX January 12, 2022 12:00am take 500 mg today (day 1), then 250 mg for 4 days (days 2-5) PO B-Complex With Vitamin C (6 sources) Start: 05-03-2019 take 1 capsule by mouth once daily B-Complex With Vitamin C Active 1 CAP PO DAILY May 02, 2019 11:00pm Start: 05-03-2019 take 1 capsule by mo [facility] once daily B-Complex With Vitamin C Active 1 CAP PO DAILY May 03, 2019 12:00am B-Complex With Vitamin C capsule (2 sources) Start: 05-03-2019 B-Complex With Vitamin C capsule Active 1 NMA PO DAILY May 03, 2019 12:00am cetirizine hydrochloride 10 mg oral capsule (8 sources) Histamine-1 Receptor Antagonist Start: 04-27-2019 take 1 capsule by mouth once daily Cetirizine 10 MG capsule Active 10 mg PO DAILY April 27, 2019 12:00am fluticasone propionate 0.05 mg/actuat metered dose nasal spray (8 sources) Corticosteroid Start: 04-27-2019 Fluticasone Propionate 1 SPRAY spray,suspension Active 1 NMA NASAL DAILY April 27, 2019 12:00am Start: 04-27-2019 Fluticasone Pr opionate Active 1 SPRAY NASAL DAILY April 27, 2019 12:00am 60 actuat mometasone furoate 0.22 mg/actuat dry powder inhaler (8 sources) Corticosteroid Start: 04-27-2019 Mometasone 220 MCG inhaler Active 1 NMA INHALATION DAILY April 27, 2019 12:00am Start: 04-27-2019 take 1 puff(s) by in halation once daily Mometasone Active 1 PUFF INHALATION DAILY April 27, 2019 12:00am Mosnjwcn-Yre-Yitok Acid-Vit K (6 sources) Start: 04-27-2019 Hiampncp-Omm-O olic Acid-Vit K Active 1 EACH PO DAILY April 26, 2019 11:00pm Start: 04-27-2019 Pfwvsglq-Nlw-R olic Acid-Vit K Active 1 EACH PO DAILY April 27, 2019 12:00am Exrlpieb-Ibm-Rbmnc Acid-Vit K 1 EACH capsule (2 sources) Start: 04-27-2019 take 1 capsule by mouth once daily Emcoxxzu-Ukq-Wsfli Acid-Vit K 1 EACH capsule Active 1 NMA PO DAILY April 27, 2019 12:00am [place] 5-Dup-Olp-Fish Oil (6 sources) Start: 04-27-2019 take 1200 mg by mouth twice daily [place] 2-Skg-Gvj-Fish Oil Active 1200 MG PO TWICE A DAY April 26, 2019 11:00pm Start: 04-27-2019 take 1200 mg by mout h twice daily [place] 3-Yxy-Gde-Fish Oil Active 1200 MG PO TWICE A DAY April 27, 2019 12:00am [place] 1-Pee-Fpc-Fish Oil 500 MG capsule,delayed release(DR/EC) (2 sources) Start: 04-27-2019 [place] 3-Dha-Ep a-Fish Oil 500 MG capsule,delayed release(DR/EC) Active 1200 mg PO TWICE A DAY April 27, 2019 12:00am predniSONE 10 mg oral tablet (8 sources) Start: 10-23-2021 Prednisone 10 mg tablet Active 10 mg PO .COMPLEX October 23, 2021 1:00am Take 4 pills for 3 days, 3 pills for 3 days, 2 pills for 3 days, take 1 pill for 3 days vitamin e 180 mg oral capsul e (8 sources) Start: 05-03-2019 Vitamin E (Dl, Acetate) 400 unit capsule Active 400 U PO DAILY May 03, 2019 12:00am Completed/Discontinued Medications Medication Drug Class(es) Dates Sig (Normalized) Sig (Original) acetaminophen 325 mg / HYDROcodone bitartrate 5 mg oral tablet (8 sources) Opioid Agonist Start: 04-27-2019 End: 05-02-2019 Hydrocodone-Acetami nophen 1 TABLET tablet Discontinued 1 {tbl} PO EVERY 6 HOURS NEEDED as needed for Pain 10 April 27, 2019 April 29, 2019 12:00am May 02, 2019 12:07am Start: 04-27-2019 End: 05-02-2019 take 1 tablet by mouth every six hours as needed Hydrocodone-Acetaminophen Discontinued 1 TABLET PO EVERY 6 HOURS NEEDED 10 April 27, 2019 May 02, 2019 12:07am acetaminophen 325 mg / oxyCODONE hydrochloride 5 mg oral tablet (8 sources) Opioid Agonist Start: 05-26-2019 End: 06-03-2019 Oxycodone-Acetaminophen 1 TABLET tablet Discontinued 1 - 2 {tbl} PO EVERY 4 HOURS NEEDED as needed for Pain 20 May 26, 2019 June 01, 2019 12:00am June 03, 2019 12:09am Start: 05-26-2019 End: 06-03-2019 take 1 tablet by mouth every four hours as needed Oxycodone-Acetaminophen Discontinued 1 - 2 TABLET PO EVERY 4 HOURS NEEDED 20 05May 26, 2019 June 03, 2019 12:09am Problems Active Problems Problem Classification Problem Date Documented Da te Episodic/Chronic Abdominal pain (8 sources) Right upper quadrant pain; Translations: [Right upper quadrant pain] 04-28-2019 Episodic Acute bronchitis (8 sources) Acute bronchitis; Translations: [Acute bronchitis, unspecified] 01-12-2022 Episodic Biliary tract disease (8 sources) Biliary calculus; Translations: [Calculus of gallbladder without cholecystitis without obstruction] 04-16-2021 Episodic Disorders of lipid metabolism (1 source) Hyperlipidemia, unspecified; Translations: [Hyperlipidemia, unspecified] Onset: 02-03-2025 Chronic Gastrointestinal hemorrhage (8 sources) Hematochezia; Translations: [Melena] 04-16-2021 Episodic Immunizations and screening for infectious disease (8 sources) Contact with and (suspected) exposure to other viral communicable diseases; Translations: [Contact with or suspected exposure to other viral communicable disease] 07-09-2021 Episodic Other screening for suspected conditions (not mental disorders or infectious disease) (1 source) Encounter for screening mammogram for malignant neoplasm of breast; Translations: [Encounter for screening mammogram for malignant neoplasm of breast] Onset: 03-17-2025 Episodic Other upper respiratory disease (8 sources) Respiratory tract congestion; Translations: [Nasal congestion] 10-23-2021 Episodic Other upper respiratory infections (16 sources) Acute upper respiratory infection; Translations: [Acute upper respiratory infection, unspecified] 07-09-2021 Episodic Pneumonia (except that caused by tuberculosis or sexually transmitted disease) (8 sources) Pneumonia; Translations: [Pneumonia, unspecified organism] 10-23-2021 Episodic Poisoning by nonmedicinal substances (16 sources) Hymenoptera sting; Translations: [Hymenoptera sting] 06-25-2021 Episodic Residual codes; unclassified (16 sources) Contact with and (suspected) exposure to other hazardous, chiefly nonmedicinal, chemicals; Translations: [Exposure to chemical inhalation] 07-03-2020 Episodic Past or Other Problems Problem Classification Problem Date Documented Da te Episodic/Chronic Unclassified (8 sources) History removal of wisdom teeth 05-27-2022 Results Test Name Value Interpretation Reference Range Facility Bone density reportOrdered B y: Rafat James on 03-13-2025 Study report Skeletal system DXA [facility] Imaging Services [address] [place], [place] [id number] Dexa Bone Density Study MR#: [id number] Acct: [id number] Name: DOROTHY DIETRICH Rep #: [id number] : 1965 F 59 From: Bruce James MD PCP: Dr. Adrian Johnson MD Status: REG CLI Study:Dexa Bone Density Study Date of Exam: 03/13/25 Exam# [id number] Ordering Dr: Javier Johnson MD PROCEDURE: DEXA BONE DENSITY STUDY 03/13/2025 REASON FOR EXAM: F, age 59 y/o . Postmenopausal. TECHNIQUE: DXA scan of sites with data reported below. REFERENCE LINKS: ISCD Adult Positions COMPARISON: None FINDINGS: BMD and T-SCORES Lumbar spine: 0.839 g/cm2, T-score -1.9 Levels: L1 through L4 Left femoral neck: 0.614 g/cm2, T-score -2.1 Femoral neck comparison data not recommended for monitoring change. Left total hip: 0.776 g/cm2, T-score -1.4 Right femoral neck: 0.629 g/cm2, T-score -2.0 Femoral neck comparison data not recommended for monitoring change. Right total hip: 0.745 g/cm2, T-score -1.6 The World Health Organization has defined the following categories based on bonedensity: Normal bone density: T-score equal to or greater than -1.0 Osteopenia: T-score between -1.0 and -2.5 Osteoporosis: T-score equal to or less than -2.5 The patient does meet the pharmacological treatment recommendations for prevention of osteoporosis. BD/Dexa Bone Density Study IMPRESSION: OSTEOPENIA. Recommend follow-up as clinically warranted. Reading Location: [facility] CC: Dr. Adrian Johnson MD ~ Director Of Special Services: Signed [facility] Breast imaging reportOrdered By: Rafat James on 03-13-2025 Study report [facility] Imaging Services [address] [place] [address] SCRN MAMM (CAD)W/PAZ BILAT MR#: [id number] Acct: [id number] Name: DOROTHY DIETRICH Rep #: [id number] : 1965 F 59 From: Bruce James MD PCP: Dr. Adrian Johnson MD Status: [facility] Study:SCRN MAMM (CAD)W/PAZ BILAT Date of Exa m: 03/13/25 Exam# [id number] Ordering Dr: Javier Johnson MD EXAM: SCRN MAMM (CAD)W/PAZ BILAT DATE: 03/13/2025 CLINICAL HISTORY: F, Age 59 y/o , SCREENING Aunt with breast cancer. BREAST CANCER RISK ASSESSMENT: Not assessed. TECHNIQUE: Bilateral screening digital breast tomosynthesis with 2D and 3D images. Computeraided detection. COMPARISON: Prior exam(s) dated March 06, 2024.. FINDINGS: TISSUE DENSITY: The breast tissue is composed of scattered area of fibroglandular density. Stable 6 mm well-defined nodule in the central lateral aspect of the right breast. This was demonstrated to be a cyst on prior sonogram. Bilateral Breast Mammographic Findings: No significant masses, calcifications or other abnormalities are identified. No suspicious masses, areas of developing architectural distortion, or suspicious calcifications. There has been no significant interval change. BI/SCRN MAMM (CAD)W/PAZ BILAT IMPRESSION: OVERALL FINAL ASSESSMENT: BIRADS 2 BENIGN FINDING RECOMMENDATION: Routine annual follow-up in 1 Year A letter with findings and recommendations will be mailed to the patient. Reading Location: [id number] CC: Dr. Adrian Johnson MD ~ Director Of Special Services: Signed [facility] Dexa Bone Density Studyon Dexa Bone Density Study [facility] Imaging Services [address] [place] [id number] Dexa Bone Density Study MR#: [id number] Acct: [id number] Name: DOROTHY DIETRICH Rep #: [id number] : 1965 F 59 From: Rafat merchant MD PCP: Dr. Adrian Johnson MD Status: REG CLI Study: Dexa Bone Density Study Date of Exam: 03/13/25 Exam# [id number] Ordering Dr: Adrian Johnson PROCEDURE: DEXA BONE DENSITY STUDY 03/13/2025 REASON FOR EXAM: F, age 59 y/o . Postmenopausal. TECHNIQUE: DXA scan of sites with data reported below. REFERENCE LINKS: ISCD Adult Positions COMPARISON: None FINDINGS: BMD and T-SCORES Lumbar spine: 0.839 g/cm2, T-score -1.9 Levels: L1 through L4 Left femoral neck: 0.614 g/cm2, T-score -2.1 Femoral neck comparison data not recommended for monitoring change. Left total hip: 0.776 g/cm2, T-score -1.4 Right femoral neck: 0.629 g/cm2, T-score -2.0 Femoral neck comparison data not recommended for monitoring change. Right total hip: 0.745 g/cm2, T-score -1.6 The World Health Organization has defined the following categories based on bone density: Normal bone density: T-score equal to or greater than -1.0 Osteopenia: T-score between -1.0 and -2.5 Osteoporosis: T-score equal to or less than -2.5 The patient does meet the pharmacological treatment recommendations for prevention of osteoporosis. BD/Dexa Bone Density Study IMPRESSION: OSTEOPENIA. Recommend follow-up as clinically warranted. Reading Location: [id number] CC: Dr. Adrian Johnson MD Director Of Special Services: Signed Normal [facility] SCRN MAMM (CAD)W/PAZ BILATo n 03-13-2025 SCRN MAMM (CAD)W/PAZ BILAT [facility] Imaging Services [address] [place] [address] SCRN MAMM (CAD)W/PAZ BILAT MR#: [id number] Acct: [id number] Name: DOROTHY DIETRICH Rep #: [id number] : 1965 F 59 From: Rafat merchant MD PCP: Dr. Adrian Johnson MD Status: REG I Study: SCRN MAMM (CAD)W/PAZ BILAT Date of Exam: 03/01 01/23 Exam# [id number] Ordering Dr: Adrian Johnson EXAM: SCRN MAMM (CAD)W/PAZ BILAT DATE: 03/13/2025 CLINICAL HISTORY: F, Age 59 y/o , SCREENING Aunt with breast cancer. BREAST CANCER RISK ASSESSMENT: Not assessed. TECHNIQUE: Bilateral screening digital breast tomosynthesis with 2D and 3D images. Computer aided detection. COMPARISON: Prior exam(s) dated March 06, 2024.. FINDINGS: TISSUE DENSITY: The breast tissue is composed of scattered area of fibroglandular density. Stable 6 mm well-defined nodule in the central lateral aspect of the right breast. This was demonstrated to be a cyst on prior sonogram. Bilateral Breast Mammographic Findings: No significant masses, calcifications or other abnormalities are identified. No suspicious masses, areas of developing architectural distortion, or suspicious calcifications. There has been no significant interval change. BI/SCRN MAMM (CAD)W/PAZ BILAT IMPRESSION: OVERALL FINAL ASSESSMENT: BIRADS 2 BENIGN FINDING RECOMMENDATION: Routine annual follow-up in 1 Year A letter with findings and recommendations will be mailed to the patient. Reading Location: [id number] CC: Dr. Adrian Johnson MD Director Of Special Services: Signed Normal [facility] Anion gap in Serum or Plasma Ordered By: Adrian Johnson on 01-31-2025 Anion gap [Moles/Vol] 12 mmol/L 5-15 [facility] BUN/creatinine ratioOrdered By: Adrian Johnson on 01-31-2025 Urea nitrogen/Creatinine [Mass ratio] 17.7 mg/mg 10-20 [facility] Bilirubin, totalOrdered By: Adrian Johnson on 01-31-2025 Bilirubin [Mass/Vol] 0.54 mg/dL 0.00-1.30 [facility] Carbon dioxide, total [Moles /volume] in Central venous bloodOrdered By: Adrian Johnson on 01-31-2025 CO2 [Moles/Vol] 22.0 mmol/L 21.0-32.0 [facility] Chloride assayOrdered By: Tamiko Johnson on 01-31-2025 Chloride [Moles/Vol] 106 mmol/L 98-108 [facility] Comprehensive Metabolic Prof ilon 01-31-2025 Albumin [Mass/Vol] 4.7 g/dL Normal 3.4-4.8 [facility] Comment on above: Order Comment: Order Date: 01/31/25 Order Info: 0786-1 - CMP Order Info: 3016-3 - TSH Performed By: #### L 500.4050, L501.9520 #### [facility] [address] [place], [address] Albumin/Globulin [Mass ratio] 1.6 {ratio} Normal 0.9-2.4 [facility] Comment on above: Order Comment: Order Date: 01/31/25 Order Info: 0786-1 - CMP Order Info: 3015-3 - TSH Performed By: #### L 500.4050, L501.9520 #### [facility] [address] [place], [address] ALK PHOS 64 U/L Normal 35-104 [facility] Comment on above: Order Comment: Order Date: 01/31/25 Order Info: 0786-1 - CMP Order Info: 3015-3 - TSH Performed By: #### L 500.4050, L501.9520 #### [facility] [address] [place], [address] ALT [Catalytic activity/Vol] 68 U/L High <=34 [facility] Comment on above: Order Comment: Order Date: 01/31/25 Order Info: 0786-1 - [facility] Order Info: 3 - TSH Performed By: #### L 500.4050, L501.9520 #### [facility] [address] [place], [address] AST [Catalytic activity/Vol] 35 U/L High <=31 [facility] Comment on above: Order Comment: Order Date: 01/31/25 Order Info: 0786-1 - CMP Order Info: 3015-3 - TSH Performed By: #### L 500.4050, L501.9520 #### [facility] [address] [place], [address] Bilirubin [Mass/Vol] 0.54 mg/dL Normal 0.00-1.30 [facility] Comment on above: Order Comment: Order Date: 01/31/25 Order Info: 0786-1 - CMP Order Info: 3016-3 - TSH Performed By: #### L 500.4050, L501.9520 #### [facility] [address] [place], [address] BUN/CRE 17.7 RATIO Normal 10-20 [facility] Comment on above: Order Comment: Order Date: 01/31/25 Order Info: 0786-1 - CMP Order Info: 3015-3 - TSH Performed By: #### L 500.4050, L501.9520 #### [facility] [address] [place], [address] Calcium [Mass/Vol] 10.4 mg/dL Normal 7.6-11.0 [facility] Comment on above: Order Comment: Order Date: 01/31/25 Order Info: 0786-1 - CMP Order Info: 3 - TSH Performed By: #### L 500.4050, L501.9520 #### [facility] [address] [place], [address] Chloride [Moles/Vol] 106 mmol/L Normal 98-108 [facility] Comment on above: Order Comment: Order Date: 01/31/25 Order Info: 0786-1 - CMP Order Info: 3 - TSH Performed By: #### L 500.4050, L501.9520 #### [facility] [address] [place], [address] CO2 [Moles/Vol] 22.0 mmol/L Normal 21.0-32.0 [facility] Comment on above: Order Comment: Order Date: 01/31/25 Order Info: 0786-1 - CMP Order Info: 3015-3 - TSH Performed By: #### L 500.4050, L501.9520 #### [facility] [address] [place], [address] Creatinine [Mass/Vol] 0.94 mg/dL Normal 0.70-1.20 [facility] Comment on above: Order Comment: Order Date: 01/31/25 Order Info: 0786-1 - CMP Order Info: 3016-3 - TSH Performed By: #### L 500.4050, L501.9520 #### [facility] [address] [place], [address] GAP 12 Normal 5-15 [facility] Comment on above: Order Comment: Order Date: 01/31/25 Order Info: 0786-1 - CMP Order Info: 3015-12 - TSH Performed By: #### L 500.4050, L501.9520 #### [facility] [address] [place], [address] GFR/1.73 sq M.predicted among non-blacks MDRD (S/P/Bld) [Vol rate/Area] 69 mL/min/{1.73_m2} Normal >60 [facility] Comment on above: Order Comment: Order Date: 01/31/25 Order Info: 0786- - CMP Order Info: 3015-12 - TSH Result Comment: mL/m in/1.73m2 CKD-EPI Creatinine Equation (2020) Performed By: #### L 500.4050, L501.9520 #### [facility] [address] [place], [address] Globulin (S) [Mass/Vol] 2.9 g/dL Normal 2.2-4.2 [facility] Comment on above: Order Comment: Order Date: 01/31/25 Order Info: 0786-1 - CMP Order Info: 3015-12 - TSH Performed By: #### L 500.4050, L501.9520 #### [facility] [address] [place], [address] Glucose [Mass/Vol] 100 mg/dL High 70-99 [facility] Comment on above: Order Comment: Order Date: 01/31/25 Order Info: 0786-1 - CMP Order Info: 3015-12 - TSH Performed By: #### L 500.4050, L501.9520 #### [facility] [address] [place], [address] Potassium [Moles/Vol] 3.8 mmol/L Normal 3.3-5.1 [facility] Comment on above: Order Comment: Order Date: 01/31/25 Order Info: 0786-1 - CMP Order Info: 30163 - TSH Performed By: #### L 500.4050, L501.9520 #### [facility] [address] [place], [address] Sodium [Moles/Vol] 141 mmol/L Normal 133-145 [facility] Comment on above: Order Comment: Order Date: 01/31/25 Order Info: 0786-1 - CMP Order Info: 30163 - TSH Performed By: #### L 500.4050, L501.9520 #### [facility] [address] [place], [address] T PROT 7.6 g/dL Normal 5.9-8.4 [facility] Comment on above: Order Comment: Order Date: 01/31/25 Order Info: 0786-1 - CMP Order Info: 3013 - TSH Performed By: #### L 500.4050, L501.9520 #### [facility] [address] [place], [address] Urea nitrogen [Mass/Vol] 17 mg/dL Normal 4-19 [facility] Comment on above: Order Comment: Order Date: 01/31/25 Order Info: 0786-1 - CMP Order Info: 3016-3 - TSH Performed By: #### L 500.4050, L501.9520 #### [facility] [address] [place], [address] GFR/1.73 sq M.predicted vishal g non-blacks MDRD (S/P/Bld) [Vol rate/Area]Ordered By: Adrian Johnson on 01-31-2025 Estimated GFR (MDRD) Non-Af Amer 69 >60 [facility] Comment on above: mL/min/1.73m2 CKD-EP I Creatinine Equation (2020) Glomerular filtration rate ( GFR) estimation/1.73 sq m using serum, plasma, or whole bOrdered By: Adrian Johnson on 01-31-2025 GFR/1.73 sq M.predicted among non-blacks MDRD (S/P/Bld) [Vol rate/Area] 69 mL/min/{1.73_m2} >60 [facility] Comment on above: mL/min/1.73m2 CKD-EP I Creatinine Equation (2020) L506.1001on 01-31-2025 Vitamin D 25-OH 33.9 ng/mL Normal 30-100 [facility] Comment on above: Order Comment: Order Date: 01/31/25 Order Info: 0786-1 - CMP Order Info: 3016-3 - TSH Result Comment: Yael min D Status Deficiency: <20 ng/mL (50nmol/L) Insufficiency: 20-30 ng/mL (50-75 nmol/L) Sufficiency: 30-100 ng/mL (75-250 nmol/L) Toxicity: >100 ng/mL (>250 nmol/L) Performed By: #### L 506.1001 #### [facility] [place], [address] Laboratory - Chemistry and C hemistry - challengeOrdered By: Adrian Johnson on 01-31-2025 AST [Catalytic activity/Vol] 35 U/L High <32 [facility] Potassium (Unsp spec) [Mass/ Vol]Ordered By: Adrian Johnson on 01-31-2025 Potassium [Moles/Vol] 3.8 mmol/L 3.3-5.1 [facility] Potassium measurement (mass/ volume)Ordered By: Adrian Johnson on 01-31-2025 Potassium (Unsp spec) [Mass/Vol] 3.8 mmol/L 3.3-5.1 [facility] Serum creatinine measurement (mass/volume)Ordered By: Adrian Johnson on 01-31-2025 Creatinine [Mass/Vol] 0.94 mg/dL 0.70-1.20 [facility] Serum globulin measurementOr dered By: Adrian Johnson on 01-31-2025 Globulin (S) [Mass/Vol] 2.9 g/dL 2.2-4.2 [facility] Serum glucose measurement (m ass/volume)Ordered By: Adrian Johnson on 01-31-2025 Glucose [Mass/Vol] 100 mg/dL High 70-99 [facility] Serum or plasma alanine gibbons otransferase (ALT) measurementOrdered By: Adrian Johnson on 01-31-2025 ALT [Catalytic activity/Vol] 68 U/L High <35 [facility] Serum or plasma albumin alena urement (mass/volume)Ordered By: Adrian Johnson on 01-31-2025 Albumin [Mass/Vol] 4.7 g/dL 3.4-4.8 [facility] Serum or plasma albumin/glob ulin mass ratioOrdered By: Adrian Johnson on 01-31-2025 Albumin/Globulin [Mass ratio] 1.6 {ratio} 0.9-2.4 [facility] Serum or plasma alkaline jennifer sphatase measurementOrdered By: Adrian Johnson on 01-31-2025 ALP [Catalytic activity/Vol] 64 U/L 35-104 [facility] Serum or plasma calcium alena urement (mass/volume)Ordered By: Adrian Johnson on 01-31-2025 Calcium [Mass/Vol] 10.4 mg/dL 7.6-11.0 [facility] Serum or plasma urea nitroge n measurement (mass/volume)Ordered By: Adrian Johnson on 01-31-2025 Urea nitrogen [Mass/Vol] 17 mg/dL 4-19 [facility] Sodium levelOrdered By: Tramaine Johnson on 01-31-2025 Sodium [Moles/Vol] 141 mmol/L 133-145 [facility] TSH DL <= 0.005 mIU/L QnOrde red By: Adrian Johnson on 01-31-2025 Thyroid Stimulating Hormone (TSH) 1.670 uIU/mL 0.300-4.200 [facility] TSH Qn 1.670 uIU/mL 0.300-4.200 [facility] Thyroid Stim Hormone (TSH)on 01-31-2025 TSH 1.670 uIU/mL Normal 0.300-4.200 [facility] Comment on above: Order Comment: Order Date: 01/31/25 Order Info: [id number] - CMP Order Info: [id number] - TSH Performed By: #### L 500.4050, L501.9520 #### [facility] [address] [place], [address] Total proteinOrdered By: Douglas Johnson on 01-31-2025 Protein [Mass/Vol] 7.6 g/dL 5.9-8.4 [facility] Vitamin D, 25-hydroxyOrdered By: Adrian Johnson on 01-31-2025 Vitamin D 25-Hydroxy 33.9 ng/mL 30-100 [facility] Comment on above: Vitamin D StatusDefi ciency: <20 ng/mL (50nmol/L)Insufficiency: 20-30 ng/mL (50-75 nmol/L)Sufficiency: 30-100 ng/mL (75-250 nmol/L)Toxicity: >100 ng/mL (>250 nmol/L) Basophil percentageOrdered B y: Maurisio Johnson on 01-31-2024 Chloride [Moles/Vol] 110 mmol/L 98-107 [facility] Cholesterol [Mass/Vol] 273 mg/dL <200 [facility] Comment on above: <200 mg/dL Desirable 200-240 mg/dL Borderline >240 mg/dL High Risk Glucose [Mass/Vol] 114 mg/dL 74-106 [facility] Comment on above: Fasting Glucose resu lt from 100 to 125 mg/dL suggests IMPAIRED HOMEOSTASIS per A.D.A. criteria. Potassium [Moles/Vol] 3.8 mmol/L 3.5-5.1 [facility] Sodium [Moles/Vol] 140 mmol/L 136-145 [facility] Triglyceride [Mass/Vol] 333 mg/dL <199 [facility] Comment on above: The drugs N-Acetylcy steine and Metamizole may falsely depress this assay.Serum Triglycerides Reference Interval Normal <150 mg/dL Borderline high 150 - 199 mg/dL High 200 - 499 mg/dL Very High > or = 500 mg/dL Laboratory - Chemistry and C hemistry - challengeOrdered By: Maurisio Johnson on 01-31-2024 Cholesterol in HDL [Mass/Vol] 51 mg/dL >40 [facility] Comment on above: The drugs N-Acetylcy steine and Metamizole may falsely depress this assay. Reference Range HDL <40 mg/dL Low HDL Cholesterol HDL >or= 60 mg/dL High HDL Cholesterol Cholesterol in LDL [Mass/Vol] 155 mg/dL 0-130 [facility] CO2 [Moles/Vol] 25.0 mmol/L 21.0-32.0 [facility] Urea nitrogen/Creatinine [Mass ratio] 15.5 mg/mg 10-20 [facility] No Panel InformationOrdered By: Maurisio Johnson on 01-31-2024 Estimated GFR (MDRD) Amer 70 mL/min >60 [facility] Comment on above: GFR Calc Estimated GFR (MDRD) Non-Af Amer 58 mL/min >60 [facility] Comment on above: Non- GFR Calc Vitamin D 25-Hydroxy 30.4 ng/mL [facility] Comment on above: Vitamin D 25(OH) Sta tus Range Deficiency <20 ng/mL (50nmol/L) Insufficiency 20 - 30 ng/mL (50 - 75 nmol/L) Sufficiency 30 - 100 ng/mL (75 - 250 nmol/L) Toxicity >100 ng/mL (>250 nmol/L) VLDL Cholesterol 67 mg/dL 5-40 [facility] Serum or plasma calcium alena urement (mass/volume)Ordered By: Maurisio Johnson on 01-31-2024 Calcium [Mass/Vol] 9.4 mg/dL 8.5-10.1 [facility] Serum or plasma creatinine m easurement (mass/volume)Ordered By: Maurisio Johnson on 01-31-2024 Creatinine [Mass/Vol] 1.03 mg/dL 0.55-1.02 [facility] Comment on above: The validity of the calculated GFR & GFRAA in patients over 70 years has not been determined. Clinical correlation is essential. Serum or plasma urea nitroge n measurement (mass/volume)Ordered By: Maurisio Johnson on 01-31-2024 Urea nitrogen [Mass/Vol] 16 mg/dL 7-18 [facility] Thin prep Papanicolaou smear with manual screeningOrdered By: Maurisio Johnson on 01-31-2024 Thin prep Papanicolaou smear with manual screening 5 5-15 [facility] Basophil percentageOrdered B y: Dr. Johnson on 01-27-2023 Chloride [Moles/Vol] 107 mmol/L 98-107 [facility] Cholesterol [Mass/Vol] 286 mg/dL <200 [facility] Comment on above: <200 mg/dL Desirable 200-240 mg/dL Borderline >240 mg/dL High Risk Glucose [Mass/Vol] 95 mg/dL 74-106 [facility] Potassium [Moles/Vol] 4.0 mmol/L 3.5-5.1 [facility] Sodium [Moles/Vol] 139 mmol/L 136-145 [facility] Triglyceride [Mass/Vol] 269 mg/dL <199 [facility] Comment on above: The drugs N-Acetylcy steine and Metamizole may falsely depress this assay.Serum Triglycerides Reference Interval Normal <150 mg/dL Borderline high 150 - 199 mg/dL High 200 - 499 mg/dL Very High > or = 500 mg/dL Laboratory - Chemistry and C hemistry - challengeOrdered By: Dr. Johnson on 01-27-2023 CO2 [Moles/Vol] 25.0 mmol/L 21.0-32.0 [facility] Urea nitrogen/Creatinine [Mass ratio] 20.5 mg/mg 10-20 [facility] No Panel InformationOrdered By: Dr. Johnson on 01-27-2023 Estimated GFR (MDRD) Amer 91 mL/min >60 [facility] Comment on above: GFR Calc Estimated GFR (MDRD) Non-Af Amer 75 mL/min >60 [facility] Comment on above: Non- GFR Calc Vitamin D 25-Hydroxy 24.7 ng/mL [facility] Comment on above: Vitamin D 25(OH) Sta tus Range Deficiency <20 ng/mL (50nmol/L) Insufficiency 20 - 30 ng/mL (50 - 75 nmol/L) Sufficiency 30 - 100 ng/mL (75 - 250 nmol/L) Toxicity >100 ng/mL (>250 nmol/L) Serum or plasma calcium alena urement (mass/volume)Ordered By: Dr. Johnson on 01-27-2023 Calcium [Mass/Vol] 9.1 mg/dL 8.5-10.1 [facility] Serum or plasma cholesterol in HDL measurement (mass/volume)Ordered By: Dr. Johnson on 01-27-2023 Cholesterol in HDL [Mass/Vol] 60 mg/dL >40 [facility] Comment on above: The drugs N-Acetylcy steine and Metamizole may falsely depress this assay. Reference Range HDL <40 mg/dL Low HDL Cholesterol HDL >or= 60 mg/dL High HDL Cholesterol Serum or plasma cholesterol in VLDL measurement (mass/volume)Ordered By: Dr. Johnson on 01-27-2023 Cholesterol in VLDL [Mass/Vol] 54 mg/dL 5-40 [facility] Serum or plasma creatinine m easurement (mass/volume)Ordered By: Dr. Johnson on 01-27-2023 Creatinine [Mass/Vol] 0.83 mg/dL 0.55-1.02 [facility] Comment on above: The validity of the calculated GFR & GFRAA in patients over 70 years has not been determined. Clinical correlation is essential. Serum or plasma low density lipoprotein (LDL) cholesterol measurement (mass/volume)Ordered By: Dr. Johnson on 01-27-2023 Cholesterol in LDL [Mass/Vol] 172 mg/dL 0-130 [facility] Serum or plasma urea nitroge n measurement (mass/volume)Ordered By: Dr. Johnson on 01-27-2023 Urea nitrogen [Mass/Vol] 17 mg/dL 7-18 [facility] Thin prep Papanicolaou smear with manual screeningOrdered By: Dr. Johnson on 01-27-2023 Thin prep Papanicolaou smear with manual screening 7 5-[address] [facility] [address] CARDIAC SCORINGon 022 CT CARDIAC SCORING Patient Name: DOROTHY DIETRICH STUDY: CT CARDIAC SCORING; 12/03/2021 8:34 am INDICATION: hyperlipidemia unspecified. COMPARISON: None. ACCESSION NUMBER(S): [id number] ORDERING CLINICIAN: ADRIAN JOHNSON TECHNIQUE: Using prospective ECG gating, CT scan of the coronary arteries was performed without intravenous contrast. Coronary calcium scoring was performed according to the method of Agatston. FINDINGS: The score and distribution of calcium in the coronary arteries is as follows: LM: 0. LAD: 0. LCx: 0. RCA: 0. Total: 0. The visualized segments of the lungs are normally expanded. The visualized mid/lower ascending thoracic aorta measures 2.9 cm in diameter. The heart is normal in size. No pericardial effusion is present. No gross evidence of mediastinal or hilar lymphadenopathy is identified. IMPRESSION: 1. Coronary artery calcium score of 0*. *Coronary artery calcium scoring may be helpful in predicting the risk for future coronary heart disease events. According to the [employer] Clinical Expert Consensus Task Force, such testing provides important prognostic information in patients with more than one coronary heart disease risk factor. The coronary artery calcium score correlates with the annual risk of a non-fatal myocardial infarction or coronary heart disease . Coronary artery score Annual Risk 0-99 0.4% 100-399 1.3% >400 2.4% These three breakpoints correspond to lower, intermediate and high risk states for future coronary events. Such information should be used, along with appropriate clinical judgment, to make decisions regarding the intensity of risk factor management strategies to treat blood lipids and to modify other non-lipid coronary risk factors. Reference: Globe P et al. Circulation. 2007; 115:402-426 Electronically signed by: BERTA ELLIS MD [facility] Encounters Encounter Date Encounter Type Care Provider Facility Start: 03-13-2025 End: 03-13-[address] Adrian Johnson MD Work Phone: [facility] Work Phone: Start: 03-13-2025 End: 03-13-[address] Adrian Johnson MD -Outpatient Bone Densitometry Work Phone: Start: 03-13-2025 End: 03-13-2025 ambulatory Adrian Johnson Facility:[facility] Start: 01-31-2025 End: 01-31-[address] Adrian Johnson MD Work Phone: [facility] Work Phone: Start: 01-31-2025 End: 01-31-[address] Adrian Johnson MD -Laboratory, [facility] Start: 01-31-2025 End: 01-31-2025 ambulatory Adrian Johnson Facility:[facility] Start: 03-06-2024 End: 03-06-2024 ambulatory [facility] Work Phone: Start: 03-06-2024 End: 03-06-2024 Patient encounter procedure [facility]-Outpatient Breast Imaging Work Phone: Start: 01-31-2024 End: 01-31-2024 ambulatory [facility] Work Phone: Start: 01-31-2024 End: 01-31-2024 Patient encounter procedure [facility] Start: 01-27-2023 End: 01-27-2023 ambulatory [facility] Work Phone: Start: 01-27-2023 End: 01-27-2023 Patient encounter procedure [facility] Start: 09-21-2022 End: 09-21-2022 ambulatory [facility] Work Phone: Start: 09-21-2022 End: 09-21-2022 Patient encounter procedure [facility]-Outpatient Breast Imaging Start: 09-17-2022 End: 09-17-2022 ambulatory [facility] Work Phone: Start: 09-17-2022 End: 09-17-2022 Patient encounter procedure [facility]-Outpatient Breast Imaging Procedures Date Procedure Procedure Detail Performing Clinician Start: 03-13-2025 Dual energy X-ray absorptiometry Dr. Adrian Johnson MD Work Phone: Start: 03-13-2025 Screening mammography Denisse Johnson MD Work Phone: Start: 01-31-2025 Vitamin D, 25-hydrox y measurement Dr. Adrian Johnson MD Work Phone: Comment on above: Vitamin D StatusDefi ciency: <20 ng/mL (50nmol/L)Insufficiency: 20-30 ng/mL (50-75 nmol/L)Sufficiency: 30-100 ng/mL (75-250 nmol/L)Toxicity: >100 ng/mL (>250 nmol/L) Start: 03-06-2024 Screening mammography Start: 11-21-2022 Mammography Start: 09-21-2022 Ultrasonography of breast Start: 09-17-2022 Screening mammography Payers Date Payer Category Payer Self-pay [id number] 2025 Unknown [id number] Private Health Insurance [id number] Unknown [id number] Unknown [id number] Social History Date Type Detail [facility] Work Phone: Start: 1965 Sex Assigned At Female [facility] Start: 01-12-2022 End: 01-12-2022 Tobacco smoking status NHIS Unknown if ever smoked [facility] Start: 01-12-2022 [facility] (finding[facility] Start: 02-03-2025 Sex Female (finding) [facility] Medical Equipment Procedure Code Equipment Code Equipment Original Text Equipment Identifier Dates Total cholecystectomy with exploration of common bile duct CLIP,RAYMUNDO [place] FDA Start: 05-26-2019 Total cholecystectomy with exploration of common bile duct CLIP,HEMKASHMIR [employer] [place] FDA Start: 05-26-2019 Total cholecystectomy with exploration of common bile duct CLIP,RAYMUNDO [place] FDA Start: 05-26-2019 Total cholecystectomy with exploration of common bile duct CLIP,RAYMUNDO [place] FDA Start: 05-26-2019 Total cholecystectomy with exploration of common bile duct CLIP,HEMKASHMIR [place] FDA Start: 05-26-2019 Total cholecystectomy with exploration of common bile duct CLIP,exsulinKASHMIR [place] FDA Start: 05-26-2019 Total cholecystectomy with exploration of common bile duct CLIP,RAYMUNDO [place] FDA Start: 05-26-2019 Total cholecystectomy with exploration of common bile duct CLIP,RAYMUNDO [place] FDA Start: 05-26-2019 Total cholecystectomy with exploration of common bile duct CLIP,RAYMUNDO [place] FDA Start: 05-26-2019 Total cholecystectomy with exploration of common bile duct CLIP,RAYMUNDO [place] FDA Start: 05-26-2019 Total cholecystectomy with exploration of common bile duct CLIP,RAYMUNDO [place] FDA Start: 05-26-2019 Total cholecystectomy with exploration of common bile duct CLIP,RAYMUNDO [place] FDA Start: 05-26-2019 Total cholecystectomy with exploration of common bile duct CLIP,RAYMUNDO [place] FDA Start: 05-26-2019 Total cholecystectomy with exploration of common bile duct CLIP,RAYMUNDO [place] FDA Start: 05-26-2019 Total cholecystectomy with exploration of common bile duct CLIP,RAYMUNDO [place] FDA Start: 05-26-2019 Total cholecystectomy with exploration of common bile duct CLIP,RAYMUNDO [place] FDA Start: 05-26-2019 Evaluation note Note Date & Type Note Facility Evaluation note No assessment information availa ble [facility] Work Phone: Reason for referral (narrative) Note Date & Type Note Facility Reason for referral (narrative) No reason for referral information available [facility] Work Phone: Summary Purpose Family History No Family History Records Found Relationship Condition Age at Onset Recorded Date/T nam mother Disorder of thyroid Unknown Hypertension Unknown father Malignant neoplasm Unknown Cerebrovascular accident (CVA) Unknown sister Diabetes mellitus Unknown Advance Directives No Advanced Directives Records Found Advance Directive Response Recorded Date/ Time Living Will Yes July 08 8:37am 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 Yes July 08, 2021 8:37am Advance Directive Response Recorded Date/ Time Living Will Yes July 08 9:37am 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 Yes July 08, 2021 9:37am Chief Complaint and Reason for Visit Chief Complaint SCREENING ABN MAMM RT Chief Complaint SCREENING Chief Complaint Admit Date SCREENING March 13, 2025 6:49a m Additional Source Comments INFORMATION SOURCE (unrecogn ized section and content) DATE CREATED AUTHOR 12/05/2021 [facility] DATE CREATED AUTHOR AUTHOR'S ORGANIZ ATION 03/18/2025 [facility] Goals (unrecognized section and content) Goals may be documented in a n alternate sectionGoals may be documented in an alternate sectionGoals may be documented in an alternate sectionGoals may be documented in an alternate sectionGoals may be documented in an alternate sectionGoals may be documented in an alternate sectionGoals may be documented in an alternate sectionGoals may be documented in an alternate section Care Teams (unrecognized sec tion and content) Team Status: Active Member Role Status Dates Dr. Maurisio Johnson MD Family Provider Active Dr. Maurisio Johnson MD Primary Care Provider Activ e Team Status: Inactive Member Role Status Dates Dr. Maurisio Johnson MD Primary Care Provider, Attending Provider, Referring Provider Active Team Status: Inactive Member Role Status Dates Dr. Maurisio Johnson MD Primary Care Provider, Atte nding Provider Active Team Status: Active Member Role Status Dates Dr. Adrian Johnson MD Family Provider Active Dr. Adrian Johnson MD Primary Care Provider Acti ve Team Status: Inactive Member Role Status Dates Dr. Adrian Johnson MD Primary Care Provider, Att ending Provider Active Team Status: Inactive Member Role Status Dates Dr. Adrian Johnson MD Primary Care Provider, Attending Provider, Referring Provider Active Team Status: Inactive Member Role Status Dates Dr. Adrian Johnson MD Primary Care Provider Acti ve Start: January 31, 2025 End: January 31, 2025 Dr. Adrian Johnson MD Attending Provider Active Start: January 31, 2025 End: January 31, 2025 Dr. Adrian Johnson MD Referring Provider Active Start: January 31, 2025 End: January 31, 2025 Team Status: Active Member Role Status Dates Dr. Adrian Johnson MD Primary Care Provider Acti ve Team Status: Inactive Member Role Status Dates Dr. Adrian Johnson MD Primary Care Provider Acti ve Start: March 13, 2025 End: March 13, 2025 Dr. Adrian Johnson MD Attending Provider Active Start: March 13, 2025 End: March 13, 2025 Dr. Adrian Johnson MD Referring Provider Active Start: March 13, 2025 End: March 13, 2025 FOR RECORDS PERTAINING TO PATIENTS WHO ARE OR HAVE BEEN ENROLLED IN A CHEMICAL DEPENDENCY/SUBSTANCEABUSE PROGRAM, SOME INFORMATION MAY BE OMITTED. This clinical summary was aggregated from multiple sources. Caution should be exercised in using it in the provision of clinical care. This summary normalizes information from multiple sources, and as a consequence, information in this document may materially change the coding, format and clinical context of patient data. In addition, data may be omitted in some cases. CLINICAL DECISIONS SHOULD BE BASED ON THE PRIMARY CLINICAL RECORDS. [facility] [employer] [facility]. provides no warranty or guarantee of the accuracy or completeness of information in this document.
[2025-07-26 10:44] LABS: AST(SGOT) 26 U/L (<=31); Alanine Aminotransfer ALT/SGPT 44 U/L (<=34); Albumin, Serum 4.5 g/dL (3.4-4.8); Alkaline Phosphatase 62 U/L (35-104); Bilirubin, Direct 0.19 mg/dL (0.00-0.30); Globulin 2.8 g/dL (2.2-4.2)
[2025-07-26 11:40] LABS: Cholesterol 269 mg/dL (<=200); Low Density Lipoprotein Calc. 153 mg/dL; Triglycerides 322 mg/dL; Very Low Density Lipoprotein 64 mg/dL (5-40); cholesterol:hdl ratio screen 5.17
[2025-07-27 04:07] LABS: GGTP 52 IU/L (0-60)
== END | disposition home or self-care (01) ==
LOC: MTLAB 07:03
PROVIDERS: PCP Family Medicine; Referring Provider Family Medicine; Visit Provider Family Medicine
DX: E78.5 Hyperlipidemia, unspecified (principal)
CPT/HCPCS: 36415; 80061; 80076; 82977